=== PATIENT | female | born 1930 | race Caucasian/White ===

== ENCOUNTER 2017-09-21 17:12 | Emergency (ER) | payer OTHER ==
[~2017-09-21] VITALS: Ht 167.6 cm; Wt 77.1 kg
[2017-09-21] MEDS ORDERED: NITROGLYCERIN 0.4 MG SL TAB SL ONE (18:00)
[2017-09-21] MEDS ORDERED: ASPirin 81 mg TAB PO ONE (18:00)
[2017-09-21 18:16] LABS: Basophils # (auto) 0 uL; Basophils % (auto) 0.3 % (0.0-2.0); Eosinophils # (auto) 0.1 uL; Eosinophils % (auto) 1.8 % (0.0-7.0); Hematocrit 43.3 % (36.0-46.0); Hemoglobin 14.1 g/dL (12.2-16.2); Lymphocytes # (auto) 1.3 uL; Lymphocytes % (auto) 16.6 % (10.0-50.0); Mean Corpuscular Hemoglobin 29.5 pg (28.0-32.0); Mean Corpuscular Hgb Conc. 32.7 g/dL (32.0-36.0); Mean Corpuscular Volume 90.4 fL (80.0-100.0); Monocytes # (auto) 0.6 uL; Monocytes % (auto) 7.3 % (0.0-12.0); Nucleated Red Blood Cells % 0.1 %; Platelet Count (auto) 261 10^3/uL (140-450); Red Blood Cells 4.79 10^6/uL (4.0-5.20); Red Cell Distribution Width 15.1 % (11.8-14.3); White Blood Cell 8.1 10^3/uL (4.4-10.8)
[2017-09-21 18:30] LABS: Alanine Aminotransferase 13 U/L (13-56); Albumin 3.7 g/dL (3.4-5.0); Alkaline Phosphatase 106 U/L (45-117); Anion Gap 4 (5-15); Aspartate Aminotransferase 16 U/L (15-37); BUN/Creatinine Ratio 11.7; Bilirubin, Total 0.5 mg/dL (0.2-1.0); Blood Urea Nitrogen 12 mg/dL (7-18); Calcium 8.2 mg/dL (8.5-10.1); Carbon Dioxide 28 mmol/L (21-32); Chloride 105 mmol/L (98-107); GFR African American 65 mL/min; GFR Non-African American 54 mL/min; Glucose 158 mg/dL (74-106); Potassium 3.6 mmol/L (3.5-5.1); Sodium 137 mmol/L (136-145); Total Protein 7.7 g/dL (6.4-8.2)
[2017-09-21 22:10] VITALS: BP 99/33
== END 2017-09-21 22:41 | disposition short-term general hospital (02) ==
LOC: ER 17:12
DX: I48.91 Unspecified atrial fibrillation (principal); I24.9 Acute ischemic heart disease, unspecified; I11.0 Hypertensive heart disease with heart failure; I50.9 Heart failure, unspecified; Z90.49 Acquired absence of other specified parts of digestive tract; Z90.710 Acquired absence of both cervix and uterus
CPT/HCPCS: 36415; 71045; 80053; 84484; 85025; 93005; 99291

== ENCOUNTER 2020-01-16 14:07 | Inpatient (IN) | payer OTHER ==
[~2020-01-16] VITALS: Ht 170.2 cm; Wt 83.6 kg
[2020-01-16] MEDS ORDERED: ZINC SULFATE 220mg CAP or TAB PO ONE (15:00)
[2020-01-16] MEDS ORDERED: ASCORBIC ACID 500 MG TAB PO ONE (15:00)
[2020-01-16 15:33] LABS: Basophils # (auto) 0 10 ^3/uL (0-0.2); Eosinophils # (auto) 0.1 10 ^3/uL (0-0.8); Hemoglobin 7.2 g/dL (12.2-16.2); Mean Corpuscular Hemoglobin 21.7 pg (28.0-32.0); Mean Corpuscular Hgb Conc. 29.9 g/dL (32.0-36.0); Mean Corpuscular Volume 72.5 fL (80.0-100.0); Monocytes # (auto) 0.9 10 ^3/uL (0-1.3); Nucleated Red Blood Cells % 0.1 %; Platelet Count (auto) 416 10^3/uL (140-450); White Blood Cell 7.8 10^3/uL (4.4-10.8)
[2020-01-16 15:35] LABS: Basophils % (auto) 0.4 % (0.0-2.0); Hematocrit 24.2 % (36.0-46.0); Lymphocytes # (auto) 1.2 10 ^3/uL (0.4-5.4); Lymphocytes % (auto) 15.2 % (10.0-50.0); Monocytes % (auto) 11.5 % (0.0-12.0); Neutrophils # (auto) 5.6 10 ^3/uL (1.6-8.6); Neutrophils % (auto) 71.9 % (37.0-80.0); Red Blood Cells 3.34 10^6/uL (4.0-5.20); Red Cell Distribution Width 16.2 % (11.8-14.3)
[2020-01-16 15:51] LABS: Chloride 105 mmol/L (98-107); Potassium 3.9 mmol/L (3.5-5.1); Sodium 134 mmol/L (136-145)
[2020-01-16 15:54] LABS: Alanine Aminotransferase 12 U/L (13-56); Albumin 2.9 g/dL (3.4-5.0); Anion Gap 8 (5-15); Aspartate Aminotransferase 16 U/L (15-37); Blood Urea Nitrogen 16 mg/dL (7-18); CRP High Sensitivity 0.41 mg/dL (< 0.3); Calcium 8.4 mg/dL (8.5-10.1); Carbon Dioxide 21 mmol/L (21-32); GFR African American 87 mL/min; GFR Non-African American 72 mL/min; Glucose 111 mg/dL (74-106)
[2020-01-16 15:56] LABS: Alkaline Phosphatase 106 U/L (45-117); Bilirubin, Total 0.2 mg/dL (0.2-1.0); Lactate Dehydrogenase 255 U/L (84-246); Lactic Acid w/Reflex 2.3 mmol/L (0.4-2.0); Total Protein 7.2 g/dL (6.4-8.2)
[2020-01-16] MEDS ORDERED: MORPHINE SULF INJ 2 MG/ML SYRINGE 1ML IV PRN ×3 (16:45→21:30)
[2020-01-16] MEDS ORDERED: NITROGLYCERIN 0.4 MG SL TAB SL PRN ×3 (16:45→21:30)
[2020-01-16] MEDS ORDERED: FURO1TAB33 PO (19:24)
[2020-01-16] MEDS ORDERED: MET25T PO (19:24)
[2020-01-16] MEDS ORDERED: DIGO0.12 PO (19:24)
[2020-01-16] MEDS ORDERED: POTA10TA75 PO (19:25)
[2020-01-16] MEDS ORDERED: SOD CHL 0.9%/ KCL 20MEQ 1,000 ML IV SCH (21:15)
[2020-01-16] MEDS ORDERED: SODIUM FERR GLUC 62.5MG/5ML 125 MG in SODIUM CHL 0.9% 100 ML IV ONE (21:15)
[2020-01-16] MEDS ORDERED: ALUM & MAG HYDROX-SIMETH LIQ(MAALOX) 30 ML PO PRN (21:30)
[2020-01-16] MEDS ORDERED: LORazepam 0.5 MG TAB PO PRN (21:30)
[2020-01-16] MEDS ORDERED: HYDROcodone-ACET 5/325MG TAB PO PRN (21:30)
[2020-01-16] MEDS ORDERED: FAMOTIDINE (10MG/ML) 2ML VL IV ONE (21:30)
[2020-01-16] MEDS ORDERED: DOCUSATE SOD 100 MG CAP PO PRN (21:30)
[2020-01-16] MEDS ORDERED: ACETAMINOPHEN 500 MG TAB PO PRN (21:30)
[2020-01-16] MEDS ORDERED: ONDANSETRON HCL 4 MG/2 ML VIAL IV PRN (21:30)
[2020-01-16] MEDS ORDERED: ACETAMINOPHEN 325 MG TAB PO PRN (21:30)
[2020-01-16] MEDS ORDERED: ALBUTEROL SULF HFA 90MCG INH 200DOSE IN SCH (22:00)
[2020-01-16] MEDS ORDERED: BUDESONIDE (INHALATION) 180 MCG IH IN SCH (22:00)
[2020-01-16] MEDS ORDERED: DIGOXIN 0.125 MG TAB PO SCH (22:00)
[2020-01-16] MEDS: METOPROLOL TARTRATE 25 MG TAB PO SCH (22:00)
[2020-01-16 22:30] VITALS: BP 123/55
[2020-01-17] MEDS: DOXYCYCLINE 100MG/250ML 250 ML IV SCH ×2 (00:07→10:03)
[2020-01-17] MEDS: ATORVASTATIN 20 MG TAB PO SCH ×2 (00:09→22:11)
[2020-01-17 02:47] VITALS: BP 112/52
[2020-01-17 04:53] VITALS: BP 112/63
[2020-01-17] MEDS: FUROSEMIDE 20 MG/2 ML VIAL IV SCH ×2 (06:00→15:58)
[2020-01-17 07:59] LABS: Basophils # (auto) 0 10 ^3/uL (0-0.2); Basophils % (auto) 0.2 % (0.0-2.0); Eosinophils # (auto) 0.1 10 ^3/uL (0-0.8); Eosinophils % (auto) 1.8 % (0.0-7.0); Hematocrit 23.2 % (36.0-46.0); Lymphocytes # (auto) 1.3 10 ^3/uL (0.4-5.4); Lymphocytes % (auto) 19.6 % (10.0-50.0); Mean Corpuscular Hgb Conc. 29.8 g/dL (32.0-36.0); Mean Corpuscular Volume 73.9 fL (80.0-100.0); Monocytes # (auto) 0.7 10 ^3/uL (0-1.3); Monocytes % (auto) 9.7 % (0.0-12.0); Neutrophils # (auto) 4.6 10 ^3/uL (1.6-8.6); Neutrophils % (auto) 68.7 % (37.0-80.0); Nucleated Red Blood Cells % 0.1 %; Platelet Count (auto) 371 10^3/uL (140-450); Red Blood Cells 3.14 10^6/uL (4.0-5.20); Red Cell Distribution Width 16.6 % (11.8-14.3); White Blood Cell 6.7 10^3/uL (4.4-10.8)
[2020-01-17 08:02] LABS: Hemoglobin 6.9 g/dL (12.2-16.2)
[2020-01-17 08:16] LABS: Calcium 8.1 mg/dL (8.5-10.1); Magnesium 2.1 mg/dL (1.6-2.6); Potassium 3.4 mmol/L (3.5-5.1)
[2020-01-17 08:18] LABS: BUN/Creatinine Ratio 20.8
[2020-01-17 08:21] LABS: Bilirubin, Total 0.5 mg/dL (0.2-1.0); CRP High Sensitivity 0.52 mg/dL (< 0.3); Total Protein 6.2 g/dL (6.4-8.2)
[2020-01-17 09:00] VITALS: BP 135/56
[2020-01-17] MEDS ORDERED: ZINC SULFATE 220mg CAP or TAB PO SCH (10:00)
[2020-01-17] MEDS ORDERED: ASCORBIC ACID 1,000 MG TAB PO SCH (10:00)
[2020-01-17] MEDS ORDERED: CHOLECALCIFEROL (VITD3) 2,000 UNIT CAP PO SCH (10:00)
[2020-01-17] MEDS ORDERED: LISINOPRIL 5 MG TAB PO SCH (10:00)
[2020-01-17] MEDS: FAMOTIDINE (10MG/ML) 2ML VL IV SCH ×2 (10:03→22:10)
[2020-01-17] MEDS: METOPROLOL TARTRATE 25 MG TAB PO SCH ×2 (10:03→22:11)
[2020-01-17 13:00] VITALS: BP 138/59
[2020-01-17] MEDS ORDERED: DABI150C5 PO (13:44)
[2020-01-17] MEDS: SODIUM FERR GLUC 62.5MG/5ML 125 MG in SODIUM CHL 0.9% 100 ML IV SCH (13:50)
[2020-01-17] MEDS ORDERED: POTASSIUM CHL 20 Meq TABLET PO ONE (14:15)
[2020-01-17 17:00] VITALS: BP 99/64
[2020-01-17 17:50] LABS: Hematocrit 23.6 % (36.0-46.0); Hemoglobin 7.1 g/dL (12.2-16.2)
[2020-01-17 17:56] LABS: INR 1.06 (0.9-1.15)
[2020-01-17 17:58] LABS: % Iron Saturation 34.6 % (15-50)
[2020-01-17] MEDS ORDERED: ARTIFICIAL TEARS 15ml LEFTEYE PRN (20:00)
[2020-01-17 22:00] VITALS: BP 106/51
[2020-01-17] MEDS: POTASSIUM CHL 10 Meq TABLET PO SCH (22:11)
[2020-01-17] MEDS: DABIGATRAN 75 MG CAP PO SCH (22:11)
[2020-01-18 05:11] VITALS: BP 106/49
[2020-01-18] MEDS: FUROSEMIDE 20 MG/2 ML VIAL IV SCH ×2 (06:27→17:45)
[2020-01-18 08:26] VITALS: BP 117/58
[2020-01-18] MEDS: FAMOTIDINE (10MG/ML) 2ML VL IV SCH ×2 (09:58→21:34)
[2020-01-18] MEDS: DIGOXIN 0.125 MG TAB PO SCH (09:58)
[2020-01-18] MEDS: POTASSIUM CHL 10 Meq TABLET PO SCH ×2 (09:58→21:26)
[2020-01-18] MEDS: DABIGATRAN 75 MG CAP PO SCH ×2 (09:59→21:27)
[2020-01-18] MEDS: METOPROLOL TARTRATE 25 MG TAB PO SCH ×2 (09:59→21:34)
[2020-01-18] MEDS ORDERED: LACTULOSE 20Gm/30ML SOLN PO ONE (11:30)
[2020-01-18 12:30] VITALS: BP 112/60
[2020-01-18 13:06] LABS: Urine Bacteria FEW /hpf (None Seen); Urine Blood Negative /uL (Negative); Urine Specific Gravity 1.005 (1.001-1.035); Urine WBC 1 /hpf (0 - 5)
[2020-01-18 13:08] LABS: Alcohol, Urine < 3.0 mg/dL (0-10); Amphetamine Screen, Urine NEGATIVE (NEGATIVE); Barbiturate Scree,Urine NEGATIVE (NEGATIVE); Benzodiazephine Screen, Urine NEGATIVE (NEGATIVE); Cannabinoid Screen, Urine NEGATIVE (NEGATIVE); Cocaine Screen, Urine NEGATIVE (NEGATIVE); Opiate Scree,Urine NEGATIVE (NEGATIVE); Phencyclidine Screen, Urine NEGATIVE (NEGATIVE)
[2020-01-18] MEDS: SODIUM FERR GLUC 62.5MG/5ML 125 MG in SODIUM CHL 0.9% 100 ML IV SCH (13:43)
[2020-01-18] MEDS ORDERED: LACTULOSE 20Gm/30ML SOLN PO PRN (15:30)
[2020-01-18 17:08] VITALS: BP 116/70
[2020-01-18] MEDS: ATORVASTATIN 20 MG TAB PO SCH (21:26)
[2020-01-18] MEDS: DOCUSATE SOD 100 MG CAP PO SCH (21:27)
[2020-01-18 22:00] VITALS: BP 102/54
[2020-01-19] VITALS (8 sets, daily range): BP systolic 106–140; BP diastolic 42–71
[2020-01-19] MEDS: FUROSEMIDE 20 MG/2 ML VIAL IV SCH (05:56)
[2020-01-19 07:19] LABS: Basophils # (auto) 0 10 ^3/uL (0-0.2); Basophils % (auto) 0.4 % (0.0-2.0); Eosinophils # (auto) 0.2 10 ^3/uL (0-0.8); Lymphocytes # (auto) 1.4 10 ^3/uL (0.4-5.4); Neutrophils # (auto) 4.8 10 ^3/uL (1.6-8.6); Nucleated Red Blood Cells % 0.1 %
[2020-01-19 07:22] LABS: Eosinophils % (auto) 3.3 % (0.0-7.0); Hematocrit 21.4 % (36.0-46.0); Lymphocytes % (auto) 19.3 % (10.0-50.0); Mean Corpuscular Hemoglobin 21.9 pg (28.0-32.0); Mean Corpuscular Hgb Conc. 30.6 g/dL (32.0-36.0); Mean Corpuscular Volume 71.6 fL (80.0-100.0); Monocytes # (auto) 0.8 10 ^3/uL (0-1.3); Monocytes % (auto) 11.2 % (0.0-12.0); Neutrophils % (auto) 65.8 % (37.0-80.0); Platelet Count (auto) 370 10^3/uL (140-450); Red Blood Cells 2.99 10^6/uL (4.0-5.20); Red Cell Distribution Width 16.2 % (11.8-14.3); White Blood Cell 7.2 10^3/uL (4.4-10.8)
[2020-01-19 07:32] LABS: Potassium 3.6 mmol/L (3.5-5.1)
[2020-01-19 07:39] LABS: Hemoglobin 6.6 g/dL (12.2-16.2)
[2020-01-19 07:42] LABS: BUN/Creatinine Ratio 17.1; Calcium 8.3 mg/dL (8.5-10.1); Magnesium 2.4 mg/dL (1.6-2.6)
[2020-01-19] MEDS ORDERED: SODIUM CHLORIDE 0.9% 1,000 ML IV ONE (10:00)
[2020-01-19] MEDS ORDERED: diphenhdrAMINE HCL 25 MG CAP PO PRN (10:00)
[2020-01-19] MEDS: METOPROLOL TARTRATE 25 MG TAB PO SCH ×2 (10:00→22:43)
[2020-01-19] MEDS ORDERED: ACETAMINOPHEN 500 MG TAB PO ONE (10:00)
[2020-01-19] MEDS: DOCUSATE SOD 100 MG CAP PO SCH ×2 (10:06→22:00)
[2020-01-19] MEDS: POTASSIUM CHL 10 Meq TABLET PO SCH (10:06)
[2020-01-19] MEDS: FAMOTIDINE (10MG/ML) 2ML VL IV SCH ×2 (10:06→22:42)
[2020-01-19] MEDS: DIGOXIN 0.125 MG TAB PO SCH (10:07)
[2020-01-19] MEDS: SODIUM FERR GLUC 62.5MG/5ML 125 MG in SODIUM CHL 0.9% 100 ML IV SCH (12:00)
[2020-01-19] MEDS: ATORVASTATIN 20 MG TAB PO SCH (22:43)
[2020-01-20 05:00] VITALS: BP 119/76
[2020-01-20] MEDS ORDERED: IOHEXOL 300 MG/ML 100ML BOTTLE IJ ONE (07:37)
[2020-01-20 09:00] VITALS: BP 113/63
[2020-01-20] MEDS ORDERED: PANTOPRAZOLE 40 MG/10 ML VIAL INJ IV ONE (09:45)
[2020-01-20] MEDS ORDERED: SODIUM CHLORIDE LOCK 10 ML ONE (11:39)
[2020-01-20] MEDS ORDERED: diphenhdrAMINE HCL 50 MG/1 ML VL ONE (11:40)
[2020-01-20] MEDS ORDERED: LIDOCAINE VISCOUS 2% 15ML UD ONE (11:40)
[2020-01-20] MEDS: fentaNYL CITRATE 100 MCG/2 ML VL ONE ×2 (11:54→11:56)
[2020-01-20] MEDS: MIDAZOLAM HCL 5 MG/ML-1ML VIAL ONE ×4 (11:54→11:59)
[2020-01-20 13:00] VITALS: BP 116/55
[2020-01-20 13:00] LABS: Basophils # (auto) 0 10 ^3/uL (0-0.2); Eosinophils # (auto) 0.2 10 ^3/uL (0-0.8); Lymphocytes # (auto) 1.1 10 ^3/uL (0.4-5.4); Lymphocytes % (auto) 15.9 % (10.0-50.0); Mean Corpuscular Hemoglobin 23.2 pg (28.0-32.0); Monocytes # (auto) 0.8 10 ^3/uL (0-1.3); Neutrophils # (auto) 4.9 10 ^3/uL (1.6-8.6); Neutrophils % (auto) 69.3 % (37.0-80.0); Nucleated Red Blood Cells % 0.2 %; Platelet Count (auto) 341 10^3/uL (140-450)
[2020-01-20 13:02] LABS: Basophils % (auto) 0.5 % (0.0-2.0); Eosinophils % (auto) 2.4 % (0.0-7.0); Hematocrit 24.6 % (36.0-46.0); Hemoglobin 7.6 g/dL (12.2-16.2); Mean Corpuscular Hgb Conc. 30.8 g/dL (32.0-36.0); Mean Corpuscular Volume 75.2 fL (80.0-100.0); Monocytes % (auto) 11.9 % (0.0-12.0); Red Blood Cells 3.27 10^6/uL (4.0-5.20); Red Cell Distribution Width 17.9 % (11.8-14.3)
[2020-01-20 13:19] LABS: Albumin 2.9 g/dL (3.4-5.0); Calcium 8.1 mg/dL (8.5-10.1); Potassium 3.8 mmol/L (3.5-5.1)
[2020-01-20 13:23] LABS: BUN/Creatinine Ratio 15.2; Bilirubin, Total 0.6 mg/dL (0.2-1.0); Total Protein 5.8 g/dL (6.4-8.2)
[2020-01-20] MEDS: DIGOXIN 0.125 MG TAB PO SCH (13:58)
[2020-01-20] MEDS: DOCUSATE SOD 100 MG CAP PO SCH ×2 (13:58→21:50)
[2020-01-20] MEDS: SODIUM FERR GLUC 62.5MG/5ML 125 MG in SODIUM CHL 0.9% 100 ML IV SCH (13:59)
[2020-01-20] MEDS: METOPROLOL TARTRATE 25 MG TAB PO SCH ×3 (13:59→21:50)
[2020-01-20 17:00] VITALS: BP 90/60
[2020-01-20] MEDS: SUCRALFATE 1 GM/10 ML ORAL SUSP PO SCH ×2 (18:14→21:38)
[2020-01-20] MEDS: PANTOPRAZOLE 40 MG/10 ML VIAL INJ IV SCH (21:37)
[2020-01-20 22:00] VITALS: BP 130/56
[2020-01-21 05:00] VITALS: BP 129/62
[2020-01-21] MEDS: SUCRALFATE 1 GM/10 ML ORAL SUSP PO SCH ×4 (06:29→22:32)
[2020-01-21 07:45] LABS: Hemoglobin 7.6 g/dL (12.2-16.2)
[2020-01-21 07:50] LABS: Hematocrit 24.6 % (36.0-46.0)
[2020-01-21 09:00] VITALS: BP 114/59
[2020-01-21] MEDS ORDERED: PANT40TA2 PO (09:35)
[2020-01-21] MEDS ORDERED: FER325T PO (09:35)
[2020-01-21] MEDS: METOPROLOL TARTRATE 25 MG TAB PO SCH ×2 (10:00→22:00)
[2020-01-21] MEDS: DOCUSATE SOD 100 MG CAP PO SCH ×2 (10:00→22:32)
[2020-01-21] MEDS: PANTOPRAZOLE 40 MG/10 ML VIAL INJ IV SCH ×2 (10:45→22:32)
[2020-01-21] MEDS: DIGOXIN 0.125 MG TAB PO SCH (10:47)
[2020-01-21 13:00] VITALS: BP 115/56
[2020-01-21] MEDS: SODIUM FERR GLUC 62.5MG/5ML 125 MG in SODIUM CHL 0.9% 100 ML IV SCH (13:59)
[2020-01-21 16:58] VITALS: BP 106/55
[2020-01-21 22:00] VITALS: BP 106/59
[2020-01-22 05:00] VITALS: BP 123/52
[2020-01-22] MEDS: SUCRALFATE 1 GM/10 ML ORAL SUSP PO SCH ×4 (06:00→21:49)
[2020-01-22 09:00] VITALS: BP 126/52
[2020-01-22] MEDS: DOCUSATE SOD 100 MG CAP PO SCH ×2 (10:00→21:49)
[2020-01-22] MEDS: DIGOXIN 0.125 MG TAB PO SCH (10:00)
[2020-01-22] MEDS: PANTOPRAZOLE 40 MG/10 ML VIAL INJ IV SCH ×2 (10:14→21:49)
[2020-01-22] MEDS: METOPROLOL TARTRATE 25 MG TAB PO SCH ×2 (10:20→21:51)
[2020-01-22 13:00] VITALS: BP 113/53
[2020-01-22 17:00] VITALS: BP 124/58
[2020-01-22 20:00] VITALS: BP 110/53
[2020-01-22 22:00] VITALS: BP 110/53
[2020-01-23] MEDS: SUCRALFATE 1 GM/10 ML ORAL SUSP PO SCH ×2 (06:01→12:37)
[2020-01-23 06:21] VITALS: BP 127/57
[2020-01-23 06:36] LABS: Hematocrit 25.8 % (36.0-46.0); Hemoglobin 7.9 g/dL (12.2-16.2)
[2020-01-23] MEDS: PANTOPRAZOLE 40 MG/10 ML VIAL INJ IV SCH (09:42)
[2020-01-23] MEDS: METOPROLOL TARTRATE 25 MG TAB PO SCH (09:42)
[2020-01-23] MEDS: DOCUSATE SOD 100 MG CAP PO SCH (09:42)
[2020-01-23] MEDS: DIGOXIN 0.125 MG TAB PO SCH (09:43)
[2020-01-23 13:00] VITALS: BP 112/55
[2020-01-23 15:48] VITALS: BP 112/55
[2020-01-23 16:57] VITALS: BP 114/56
== END 2020-01-23 19:35 | disposition home health service (06) | DRG 377 ==
LOC: ER 14:07 → EDBD 14:07 → TELE 14:08 → TELE-EAST 22:19 → TELE-CENTR 01-17 19:43
PROVIDERS: ADMIT Hospitalist; ATTEND Internal Medicine
PROC: 30233N1 Transfusion of Nonautologous Red Blood Cells into Peripheral Vein, Percutaneous Approach (ICD-10-PCS; 2020-01-19)
PROC: 0DB88ZX Excision of Small Intestine, Via Natural or Artificial Opening Endoscopic, Diagnostic (ICD-10-PCS; 2020-01-20)
PROC: 0DB68ZX Excision of Stomach, Via Natural or Artificial Opening Endoscopic, Diagnostic (ICD-10-PCS; principal; 2020-01-20 11:45)
DX: K29.01 Acute gastritis with bleeding (principal); I50.43 Acute on chronic combined systolic (congestive) and diastolic (congestive) heart failure; E87.2 Acidosis; I48.20 Chronic atrial fibrillation, unspecified; E44.0 Moderate protein-calorie malnutrition; D50.9 Iron deficiency anemia, unspecified; I11.0 Hypertensive heart disease with heart failure; K43.9 Ventral hernia without obstruction or gangrene; D53.9 Nutritional anemia, unspecified; R73.9 Hyperglycemia, unspecified; E78.5 Hyperlipidemia, unspecified; E87.6 Hypokalemia; F17.200 Nicotine dependence, unspecified, uncomplicated; G25.0 Essential tremor; I25.9 Chronic ischemic heart disease, unspecified; I67.2 Cerebral atherosclerosis; I70.0 Atherosclerosis of aorta; K57.30 Diverticulosis of large intestine without perforation or abscess without bleeding; K59.00 Constipation, unspecified; R73.03 Prediabetes; Z79.899 Other long term (current) drug therapy; Z90.49 Acquired absence of other specified parts of digestive tract; Z90.710 Acquired absence of both cervix and uterus; K42.9 Umbilical hernia without obstruction or gangrene; Z20.828 Contact with and (suspected) exposure to other viral communicable diseases
CPT/HCPCS: 36415; 70450; 70551; 71045; 74177; 80048; 80053; 80061; 80162; 80307; 81001; 82270; 82607; 82728; 83036; 83540; 83550; 83605; 83615; 83735; 83880; 84100; 84132; 84443; 84484; 85014; 85018; 85025; 85379; 85610; 85652; 86141; 86850; 86900; 86901; 86920; 87040; 87086; 93005; 93306; 97116; 97163; 97530; 99291; C9113; G0378; J2250; J3490

== ENCOUNTER 2020-07-28 21:07 | Emergency (ER) | payer OTHER ==
[~2020-07-28] VITALS: Ht 170.2 cm; Wt 77.1 kg
[~2020-07-28 21:07] MED LIST: DABI150C5 PO; DIGO0.12 PO; FER325T PO; FURO1TAB33 PO; MET25T PO; PANT40TA2 PO; POTA-264 PO
[2020-07-28 21:17] VITALS: BP 121/82
[2020-07-28 21:57] LABS: Basophils # (auto) 0 10 ^3/uL (0-0.2); Basophils % (auto) 0.2 % (0.0-2.0); Eosinophils # (auto) 0.1 10 ^3/uL (0-0.8); Eosinophils % (auto) 0.7 % (0.0-7.0); Hematocrit 41.6 % (36.0-46.0); Hemoglobin 13.8 g/dL (12.2-16.2); Lymphocytes # (auto) 0.9 10 ^3/uL (0.4-5.4); Lymphocytes % (auto) 6.4 % (10.0-50.0); Mean Corpuscular Hemoglobin 30.2 pg (28.0-32.0); Mean Corpuscular Hgb Conc. 33.2 g/dL (32.0-36.0); Mean Corpuscular Volume 91.1 fL (80.0-100.0); Monocytes # (auto) 0.9 10 ^3/uL (0-1.3); Monocytes % (auto) 6.6 % (0.0-12.0); Neutrophils # (auto) 11.4 10 ^3/uL (1.6-8.6); Neutrophils % (auto) 86.1 % (37.0-80.0); Nucleated Red Blood Cells % 0.1 %; Platelet Count (auto) 229 10^3/uL (140-450); Red Blood Cells 4.57 10^6/uL (4.0-5.20); Red Cell Distribution Width 15.3 % (11.8-14.3); White Blood Cell 13.3 10^3/uL (4.4-10.8)
[2020-07-28 22:11] LABS: Albumin 3.3 g/dL (3.4-5.0); Anion Gap 9 (5-15); Blood Urea Nitrogen 16 mg/dL (7-18); Calcium 8.4 mg/dL (8.5-10.1); Carbon Dioxide 24 mmol/L (21-32); Chloride 103 mmol/L (98-107); Glucose 165 mg/dL (74-106); Magnesium 1.8 mg/dL (1.6-2.6); Potassium 3.7 mmol/L (3.5-5.1); Sodium 136 mmol/L (136-145)
[2020-07-28 22:13] LABS: Alanine Aminotransferase 14 U/L (13-56); Aspartate Aminotransferase 19 U/L (15-37); BUN/Creatinine Ratio 16.7; GFR African American 71 mL/min; GFR Non-African American 58 mL/min; INR 1.01 (0.9-1.15); Partial Thromboplastin Time 33.6 sec (23.0-31.2)
[2020-07-28 22:27] LABS: Alkaline Phosphatase 102 U/L (45-117); Bilirubin, Total 0.2 mg/dL (0.2-1.0); Total Protein 6.6 g/dL (6.4-8.2)
[2020-07-29] MEDS ORDERED: FUROSEMIDE 20 MG/2 ML VIAL IV ONE (00:30)
== END 2020-07-29 01:27 | disposition home or self-care (01) ==
LOC: EDBD 21:07 → ER 21:10
DX: R07.89 Other chest pain (principal); I11.0 Hypertensive heart disease with heart failure; I50.23 Acute on chronic systolic (congestive) heart failure; E78.5 Hyperlipidemia, unspecified; Z79.899 Other long term (current) drug therapy; Z90.49 Acquired absence of other specified parts of digestive tract; Z90.710 Acquired absence of both cervix and uterus
CPT/HCPCS: 36415; 71045; 80053; 83735; 83880; 84484; 85025; 85379; 85610; 85730; 93005; 93971

== ENCOUNTER 2021-04-22 10:20 | Inpatient (IN) | payer OTHER ==
[~2021-04-22] VITALS: Ht 170.2 cm; Wt 80.1 kg
[2021-04-22 12:40] LABS: Basophils # (auto) 0 10 ^3/uL (0-0.2); Basophils % (auto) 0.1 % (0.0-2.0); Eosinophils # (auto) 0 10 ^3/uL (0-0.8); Hematocrit 34.5 % (36.0-46.0); Hemoglobin 11.4 g/dL (12.2-16.2); Lymphocytes # (auto) 0.3 10 ^3/uL (0.4-5.4); Lymphocytes % (auto) 7.1 % (10.0-50.0); Mean Corpuscular Hemoglobin 29.9 pg (28.0-32.0); Mean Corpuscular Hgb Conc. 32.9 g/dL (32.0-36.0); Mean Corpuscular Volume 90.7 fL (80.0-100.0); Monocytes # (auto) 0.8 10 ^3/uL (0-1.3); Monocytes % (auto) 17.5 % (0.0-12.0); Neutrophils # (auto) 3.6 10 ^3/uL (1.6-8.6); Neutrophils % (auto) 75.3 % (37.0-80.0); Nucleated Red Blood Cells % 0.1 %; Red Blood Cells 3.81 10^6/uL (4.0-5.20); Red Cell Distribution Width 14.6 % (11.8-14.3); White Blood Cell 4.8 10^3/uL (4.4-10.8)
[2021-04-22] MEDS ORDERED: ONDANSETRON HCL 4 MG/2 ML VIAL IV ONE (12:45)
[2021-04-22] MEDS ORDERED: ONDANSETRON HCL 4 MG/2 ML VIAL ONE (12:45)
[2021-04-22 13:06] LABS: Calcium 8.3 mg/dL (8.5-10.1); Potassium 3.7 mmol/L (3.5-5.1)
[2021-04-22 13:14] LABS: BUN/Creatinine Ratio 20.6; Bilirubin, Total 0.3 mg/dL (0.2-1.0); Total Protein 6.6 g/dL (6.4-8.2)
[2021-04-22] MEDS ORDERED: dilTIAZem 25 MG/5 ML VIAL IV ONE ×2 (15:45→16:30)
[2021-04-22] MEDS ORDERED: MORPHINE SULFATE INJECTION 2 MG/ML SYRG IV PRN ×3 (17:30→19:30)
[2021-04-22] MEDS ORDERED: DABI1CAP PO (18:43)
[2021-04-22] MEDS ORDERED: hydrALAZINE HCL 20 MG/ML VL IV PRN (19:30)
[2021-04-22] MEDS ORDERED: FAMOTIDINE (10MG/ML) 2ML VL IV ONE (19:30)
[2021-04-22] MEDS ORDERED: METOPROLOL TARTRATE 1MG/1ML-5ML VIAL IV PRN (19:30)
[2021-04-22] MEDS ORDERED: ALUM & MAG HYDROX-SIMETH LIQ(MAALOX) 30 ML PO PRN (19:30)
[2021-04-22] MEDS ORDERED: HYDROcodone-ACET 5/325MG TAB PO PRN (19:30)
[2021-04-22] MEDS ORDERED: LORazepam 0.5 MG TAB PO PRN (19:30)
[2021-04-22] MEDS ORDERED: DOCUSATE SOD 100 MG CAP PO PRN (19:30)
[2021-04-22] MEDS ORDERED: NITROGLYCERIN 0.4 MG SL TAB SL PRN (19:30)
[2021-04-22] MEDS ORDERED: NIFEdipine ER 30 MG TAB PO ONE (19:30)
[2021-04-22] MEDS ORDERED: METOPROLOL SUCCINATE XL 50 MG TAB PO ONE (19:30)
[2021-04-22] MEDS ORDERED: SODIUM CHLORIDE 0.9% 1,000 ML IV SCH (19:30)
[2021-04-22] MEDS ORDERED: cefTRIAXone 1GM/50ML D5W 50 ML IV ONE (19:30)
[2021-04-22] MEDS ORDERED: AZITHROMYCIN 500MG/ 250ML 250 ML IV ONE (21:00)
[2021-04-22] MEDS: FAMOTIDINE (10MG/ML) 2ML VL IV SCH (22:00)
[2021-04-22] MEDS: ATORVASTATIN 20 MG TAB PO SCH (22:00)
[2021-04-22] MEDS: APIXABAN 5 MG TAB PO SCH (22:00)
[2021-04-22] MEDS: ONDANSETRON HCL 4 MG/2 ML VIAL IV PRN (23:54)
[2021-04-23] VITALS (7 sets, daily range): BP systolic 104–145; BP diastolic 59–81
[2021-04-23] MEDS ORDERED: FUROSEMIDE 20 MG/2 ML VIAL IV SCH (06:00)
[2021-04-23 07:58] LABS: Basophils # (auto) 0 10 ^3/uL (0-0.2); Basophils % (auto) 0.3 % (0.0-2.0); Eosinophils # (auto) 0 10 ^3/uL (0-0.8); Hematocrit 37.6 % (36.0-46.0); Lymphocytes # (auto) 0.6 10 ^3/uL (0.4-5.4); Mean Corpuscular Hemoglobin 29.1 pg (28.0-32.0); Mean Corpuscular Volume 90.8 fL (80.0-100.0); Monocytes # (auto) 0.7 10 ^3/uL (0-1.3); Monocytes % (auto) 14.1 % (0.0-12.0); Neutrophils # (auto) 3.8 10 ^3/uL (1.6-8.6); Neutrophils % (auto) 73.6 % (37.0-80.0); Nucleated Red Blood Cells % 0.1 %; Red Blood Cells 4.15 10^6/uL (4.0-5.20); Red Cell Distribution Width 14.6 % (11.8-14.3); White Blood Cell 5.2 10^3/uL (4.4-10.8)
[2021-04-23 08:12] LABS: BUN/Creatinine Ratio 16.7; Calcium 8.2 mg/dL (8.5-10.1); Magnesium 2.3 mg/dL (1.6-2.6); Potassium 3.5 mmol/L (3.5-5.1)
[2021-04-23 08:35] LABS: INR 1.03 (0.9-1.15); Partial Thromboplastin Time 38.9 sec (23.6-33.0)
[2021-04-23 08:38] LABS: Bilirubin, Total 0.3 mg/dL (0.2-1.0); Total Protein 6.6 g/dL (6.4-8.2)
[2021-04-23 09:45] LABS: Phosphorus 3.3 mg/dL (2.5-4.90)
[2021-04-23] MEDS: FAMOTIDINE (10MG/ML) 2ML VL IV SCH (10:00)
[2021-04-23] MEDS ORDERED: NIFEdipine ER 30 MG TAB PO SCH (10:00)
[2021-04-23] MEDS ORDERED: METOPROLOL SUCCINATE XL 50 MG TAB PO SCH (10:00)
[2021-04-23] MEDS ORDERED: POTASSIUM CHL 20 Meq TABLET PO ONE (10:45)
[2021-04-23] MEDS: cefTRIAXone 1GM/50ML D5W 50 ML IV SCH (10:56)
[2021-04-23] MEDS: APIXABAN 5 MG TAB PO SCH ×2 (10:56→21:32)
[2021-04-23] MEDS: AZITHROMYCIN 500MG/ 250ML 250 ML IV SCH (10:57)
[2021-04-23] MEDS ORDERED: ZINC SULFATE 220mg CAP or TAB PO ONE (12:00)
[2021-04-23] MEDS ORDERED: REMDESIVIR PER PHARMACY 0 ML IV SCH (12:00)
[2021-04-23] MEDS ORDERED: DexAMETHasone SOD PHOS 4 MG/1ML SDV INJ IV ONE (12:00)
[2021-04-23] MEDS ORDERED: ASCORBIC ACID 500 MG TAB PO ONE (12:00)
[2021-04-23] MEDS ORDERED: REMDESIVIR 200 MG in NS 210ml LOADING DOSE ADULT IV ONE (15:00)
[2021-04-23] MEDS: ONDANSETRON HCL 4 MG/2 ML VIAL IV PRN ×2 (16:27→21:46)
[2021-04-23] MEDS: MORPHINE SULFATE INJECTION 2 MG/ML SYRG IV PRN (16:32)
[2021-04-23] MEDS: ERGOCALCIFEROL 50,000 UNIT(1.25MG) CAP PO SCH (17:15)
[2021-04-23] MEDS: METOPROLOL TARTRATE 25 MG TAB PO SCH (21:32)
[2021-04-23] MEDS: ATORVASTATIN 20 MG TAB PO SCH (21:32)
[2021-04-24 05:30] VITALS: BP 129/67
[2021-04-24 09:00] VITALS: BP 139/75
[2021-04-24] MEDS: cefTRIAXone 1GM/50ML D5W 50 ML IV SCH (10:05)
[2021-04-24] MEDS: FAMOTIDINE (10MG/ML) 2ML VL IV SCH (10:05)
[2021-04-24] MEDS: DexAMETHasone SOD PHOS 4 MG/1ML SDV INJ IV SCH (10:05)
[2021-04-24] MEDS: ZINC SULFATE 220mg CAP or TAB PO SCH (10:06)
[2021-04-24] MEDS: AZITHROMYCIN 500MG/ 250ML 250 ML IV SCH (10:06)
[2021-04-24] MEDS: ASCORBIC ACID 500 MG TAB PO SCH (10:06)
[2021-04-24] MEDS: METOPROLOL TARTRATE 25 MG TAB PO SCH ×2 (10:06→22:33)
[2021-04-24] MEDS: APIXABAN 5 MG TAB PO SCH ×2 (10:06→22:32)
[2021-04-24] MEDS: FUROSEMIDE 20 MG/2 ML VIAL IV SCH (10:07)
[2021-04-24 10:58] LABS: Hematocrit 37.3 % (36.0-46.0); Mean Corpuscular Hemoglobin 29.2 pg (28.0-32.0); Mean Corpuscular Hgb Conc. 32.3 g/dL (32.0-36.0); Mean Corpuscular Volume 90.5 fL (80.0-100.0); Red Blood Cells 4.13 10^6/uL (4.0-5.20); Red Cell Distribution Width 14.3 % (11.8-14.3)
[2021-04-24 11:08] LABS: Basophils % (manual) 0 (0.0-2.0); Blast Cells 0; Eosinophils % (manual) 0 (0-7); Myelocytes % 0; Promyelocytes % 0; Reactive Lymphocytes 0
[2021-04-24] MEDS ORDERED: PANTOPRAZOLE 40 MG/10 ML VIAL INJ IV ONE (11:15)
[2021-04-24] MEDS ORDERED: ALPRAZolam 0.25 MG TAB PO ONE (11:15)
[2021-04-24 11:18] LABS: Albumin 2.9 g/dL (3.4-5.0); Calcium 8.5 mg/dL (8.5-10.1); Potassium 4.2 mmol/L (3.5-5.1)
[2021-04-24 11:22] LABS: BUN/Creatinine Ratio 20.6; Bilirubin, Total 0.4 mg/dL (0.2-1.0); Total Protein 6.2 g/dL (6.4-8.2)
[2021-04-24 11:46] LABS: Alcohol, Urine < 3.0 mg/dL (0-10); Amphetamine Screen, Urine NEGATIVE (NEGATIVE); Barbiturate Scree,Urine NEGATIVE (NEGATIVE); Benzodiazephine Screen, Urine NEGATIVE (NEGATIVE); Cannabinoid Screen, Urine NEGATIVE (NEGATIVE); Cocaine Screen, Urine NEGATIVE (NEGATIVE); Opiate Scree,Urine NEGATIVE (NEGATIVE); Phencyclidine Screen, Urine NEGATIVE (NEGATIVE)
[2021-04-24 12:42] LABS: Urine Bacteria FEW /hpf (None Seen); Urine Blood Negative /uL (Negative); Urine Hyaline Cast MANY /lpf (0 - 2); Urine Specific Gravity 1.008 (1.001-1.035); Urine WBC <1 /hpf (0 - 5)
[2021-04-24 12:56] LABS: Band Neutrophils % (manual) 8; Lymphocytes % (manual) 27 (10.0-50.0); Metamyelocytes % 2; Monocytes % (manual) 19 (0-12)
[2021-04-24 13:00] VITALS: BP 118/61
[2021-04-24] MEDS ORDERED: ARTIFICIAL TEARS 15ml EACHEYE PRN ×3 (13:15→22:00)
[2021-04-24] MEDS: REMDESIVIR 100mg 100 MG in SODIUM CHL 0.9% 230 ML IV SCH (15:24)
[2021-04-24 17:00] VITALS: BP 119/69
[2021-04-24] MEDS: ATORVASTATIN 20 MG TAB PO SCH (22:33)
[2021-04-24] MEDS: ALPRAZolam 0.25 MG TAB PO SCH (22:36)
[2021-04-24] MEDS: MURO EACHEYE SCH (22:36)
[2021-04-24 23:17] VITALS: BP 117/64
[2021-04-25] VITALS (8 sets, daily range): BP systolic 98–123; BP diastolic 55–71
[2021-04-25] MEDS: cefTRIAXone 1GM/50ML D5W 50 ML IV SCH (09:05)
[2021-04-25] MEDS: DexAMETHasone SOD PHOS 4 MG/1ML SDV INJ IV SCH (09:05)
[2021-04-25] MEDS: APIXABAN 5 MG TAB PO SCH ×2 (09:06→22:21)
[2021-04-25] MEDS: ZINC SULFATE 220mg CAP or TAB PO SCH (09:06)
[2021-04-25] MEDS: ALPRAZolam 0.25 MG TAB PO SCH ×2 (09:07→22:21)
[2021-04-25] MEDS: [UNRECOGNIZED DRUG - OTHER] EACHEYE PRN (09:07)
[2021-04-25] MEDS: ASCORBIC ACID 500 MG TAB PO SCH (09:07)
[2021-04-25] MEDS: FUROSEMIDE 20 MG/2 ML VIAL IV SCH (09:21)
[2021-04-25] MEDS: METOPROLOL TARTRATE 25 MG TAB PO SCH ×2 (09:22→22:20)
[2021-04-25] MEDS ORDERED: PANTOPRAZOLE 40 MG/10 ML VIAL INJ IV SCH (10:00)
[2021-04-25] MEDS: AZITHROMYCIN 500MG/ 250ML 250 ML IV SCH (10:16)
[2021-04-25] MEDS: ONDANSETRON HCL 4 MG/2 ML VIAL IV PRN (15:09)
[2021-04-25] MEDS: REMDESIVIR 100mg 100 MG in SODIUM CHL 0.9% 230 ML IV SCH (16:43)
[2021-04-25] MEDS: MURO EACHEYE SCH (22:21)
[2021-04-25] MEDS: ATORVASTATIN 20 MG TAB PO SCH (22:21)
[2021-04-26 05:00] VITALS: BP 102/53
[2021-04-26 08:00] VITALS: BP 97/55
[2021-04-26 09:00] VITALS: BP 97/55
[2021-04-26] MEDS: [UNRECOGNIZED DRUG - OTHER] EACHEYE PRN ×2 (09:10→15:15)
[2021-04-26] MEDS: cefTRIAXone 1GM/50ML D5W 50 ML IV SCH (09:25)
[2021-04-26] MEDS: FUROSEMIDE 20 MG/2 ML VIAL IV SCH (09:25)
[2021-04-26] MEDS: DexAMETHasone SOD PHOS 4 MG/1ML SDV INJ IV SCH (09:25)
[2021-04-26] MEDS: APIXABAN 5 MG TAB PO SCH ×2 (09:26→22:10)
[2021-04-26] MEDS: ZINC SULFATE 220mg CAP or TAB PO SCH (09:26)
[2021-04-26] MEDS: PANTOPRAZOLE 40 MG TAB PO SCH (09:27)
[2021-04-26] MEDS: METOPROLOL TARTRATE 25 MG TAB PO SCH ×2 (09:27→22:10)
[2021-04-26] MEDS: ALPRAZolam 0.25 MG TAB PO SCH ×2 (09:28→22:11)
[2021-04-26] MEDS: ASCORBIC ACID 500 MG TAB PO SCH (09:28)
[2021-04-26] MEDS: LISINOPRIL 5 MG TAB PO SCH (09:28)
[2021-04-26] MEDS: AZITHROMYCIN 250 MG TAB PO SCH (09:28)
[2021-04-26 13:00] VITALS: BP 102/52
[2021-04-26] MEDS: REMDESIVIR 100mg 100 MG in SODIUM CHL 0.9% 230 ML IV SCH (15:55)
[2021-04-26] MEDS ORDERED: LACTULOSE 20Gm/30ML SOLN PO ONE (16:00)
[2021-04-26 17:00] VITALS: BP 105/67
[2021-04-26 22:00] VITALS: BP 106/53
[2021-04-26] MEDS: ATORVASTATIN 20 MG TAB PO SCH (22:10)
[2021-04-26] MEDS: MURO EACHEYE SCH (22:11)
[2021-04-26] MEDS: LACTULOSE 20Gm/30ML SOLN PO SCH (22:11)
[2021-04-27 05:00] VITALS: BP 98/47
[2021-04-27 09:00] VITALS: BP 124/66
[2021-04-27] MEDS: LACTULOSE 20Gm/30ML SOLN PO SCH ×2 (11:15→22:33)
[2021-04-27] MEDS: ASCORBIC ACID 500 MG TAB PO SCH (11:16)
[2021-04-27] MEDS: AZITHROMYCIN 250 MG TAB PO SCH (11:16)
[2021-04-27] MEDS: APIXABAN 5 MG TAB PO SCH ×2 (11:17→22:34)
[2021-04-27] MEDS: DexAMETHasone 4 MG TAB PO SCH (11:17)
[2021-04-27] MEDS: LISINOPRIL 5 MG TAB PO SCH (11:17)
[2021-04-27] MEDS: ZINC SULFATE 220mg CAP or TAB PO SCH (11:17)
[2021-04-27] MEDS: PANTOPRAZOLE 40 MG TAB PO SCH (11:17)
[2021-04-27] MEDS: ALPRAZolam 0.25 MG TAB PO SCH ×2 (11:17→22:34)
[2021-04-27] MEDS: METOPROLOL TARTRATE 25 MG TAB PO SCH ×3 (11:18→22:48)
[2021-04-27] MEDS: FUROSEMIDE 20 MG TAB PO SCH (11:18)
[2021-04-27 13:00] VITALS: BP 110/55
[2021-04-27] MEDS: REMDESIVIR 100mg 100 MG in SODIUM CHL 0.9% 230 ML IV SCH (16:20)
[2021-04-27 17:00] VITALS: BP 104/59
[2021-04-27 22:00] VITALS: BP_SYST 108; BP_SYST 110; BP_DIAS 53; BP_DIAS 54
[2021-04-27] MEDS: MURO EACHEYE SCH (22:33)
[2021-04-27] MEDS: ATORVASTATIN 20 MG TAB PO SCH (22:34)
[2021-04-28 05:00] VITALS: BP 109/76
[2021-04-28 09:00] VITALS: BP 110/64
[2021-04-28] MEDS: ALPRAZolam 0.25 MG TAB PO SCH ×2 (09:57→21:52)
[2021-04-28] MEDS: AZITHROMYCIN 250 MG TAB PO SCH (09:57)
[2021-04-28] MEDS: APIXABAN 5 MG TAB PO SCH ×2 (09:58→21:52)
[2021-04-28] MEDS: PANTOPRAZOLE 40 MG TAB PO SCH (09:58)
[2021-04-28] MEDS: DexAMETHasone 4 MG TAB PO SCH (09:58)
[2021-04-28] MEDS: ZINC SULFATE 220mg CAP or TAB PO SCH (09:58)
[2021-04-28] MEDS: ASCORBIC ACID 500 MG TAB PO SCH (09:58)
[2021-04-28] MEDS: METOPROLOL TARTRATE 25 MG TAB PO SCH ×2 (10:00→21:39)
[2021-04-28] MEDS: LACTULOSE 20Gm/30ML SOLN PO SCH ×3 (10:00→21:52)
[2021-04-28] MEDS: LISINOPRIL 5 MG TAB PO SCH (10:00)
[2021-04-28] MEDS: FUROSEMIDE 20 MG TAB PO SCH (10:00)
[2021-04-28 12:55] VITALS: BP 95/62
[2021-04-28 17:00] VITALS: BP 92/58
[2021-04-28] MEDS: ATORVASTATIN 20 MG TAB PO SCH (21:52)
[2021-04-28] MEDS: MURO EACHEYE SCH (21:52)
[2021-04-28] MEDS: [UNRECOGNIZED DRUG - OTHER] EACHEYE PRN (21:54)
[2021-04-28 21:57] VITALS: BP 95/57
[2021-04-29 05:01] VITALS: BP 98/55
[2021-04-29 07:04] LABS: Basophils # (auto) 0 10 ^3/uL (0-0.2); Basophils % (auto) 0.1 % (0.0-2.0); Eosinophils # (auto) 0 10 ^3/uL (0-0.8); Eosinophils % (auto) 0.1 % (0.0-7.0); Hematocrit 27.4 % (36.0-46.0); Hemoglobin 9.2 g/dL (12.2-16.2); Lymphocytes % (auto) 14.6 % (10.0-50.0); Mean Corpuscular Hemoglobin 29.4 pg (28.0-32.0); Mean Corpuscular Hgb Conc. 33.5 g/dL (32.0-36.0); Mean Corpuscular Volume 87.7 fL (80.0-100.0); Monocytes # (auto) 0.7 10 ^3/uL (0-1.3); Monocytes % (auto) 10.7 % (0.0-12.0); Neutrophils # (auto) 5.2 10 ^3/uL (1.6-8.6); Neutrophils % (auto) 74.5 % (37.0-80.0); Red Blood Cells 3.12 10^6/uL (4.0-5.20); Red Cell Distribution Width 14.4 % (11.8-14.3); White Blood Cell 6.9 10^3/uL (4.4-10.8)
[2021-04-29 07:07] LABS: Albumin 2.4 g/dL (3.4-5.0); Potassium 3.6 mmol/L (3.5-5.1)
[2021-04-29 07:11] LABS: BUN/Creatinine Ratio 42.9; Bilirubin, Total 0.2 mg/dL (0.2-1.0)
[2021-04-29 08:00] VITALS: BP 114/72
[2021-04-29] MEDS: LISINOPRIL 5 MG TAB PO SCH (10:00)
[2021-04-29] MEDS: METOPROLOL TARTRATE 25 MG TAB PO SCH ×2 (10:09→22:00)
[2021-04-29] MEDS: DexAMETHasone 4 MG TAB PO SCH (10:09)
[2021-04-29] MEDS: ZINC SULFATE 220mg CAP or TAB PO SCH (10:09)
[2021-04-29] MEDS: LACTULOSE 20Gm/30ML SOLN PO SCH ×2 (10:09→22:00)
[2021-04-29] MEDS: APIXABAN 5 MG TAB PO SCH ×2 (10:09→22:40)
[2021-04-29] MEDS: FUROSEMIDE 20 MG TAB PO SCH (10:09)
[2021-04-29] MEDS: ASCORBIC ACID 500 MG TAB PO SCH (10:09)
[2021-04-29] MEDS: PANTOPRAZOLE 40 MG TAB PO SCH (10:09)
[2021-04-29] MEDS: AZITHROMYCIN 250 MG TAB PO SCH (10:10)
[2021-04-29] MEDS: ALPRAZolam 0.25 MG TAB PO SCH ×2 (10:10→22:40)
[2021-04-29 12:11] VITALS: BP 114/55
[2021-04-29 17:03] VITALS: BP 103/49
[2021-04-29 22:00] VITALS: BP 95/45
[2021-04-29] MEDS: MURO EACHEYE SCH (22:00)
[2021-04-29] MEDS: ATORVASTATIN 20 MG TAB PO SCH (22:40)
[2021-04-30 05:00] VITALS: BP 102/41
[2021-04-30] MEDS: LACTULOSE 20Gm/30ML SOLN PO SCH ×2 (08:41→21:47)
[2021-04-30] MEDS: DexAMETHasone 4 MG TAB PO SCH (08:41)
[2021-04-30] MEDS: ASCORBIC ACID 500 MG TAB PO SCH (08:41)
[2021-04-30] MEDS: ZINC SULFATE 220mg CAP or TAB PO SCH (08:41)
[2021-04-30] MEDS: APIXABAN 5 MG TAB PO SCH ×2 (08:41→21:48)
[2021-04-30] MEDS: AZITHROMYCIN 250 MG TAB PO SCH (08:41)
[2021-04-30] MEDS: PANTOPRAZOLE 40 MG TAB PO SCH (08:41)
[2021-04-30 09:00] VITALS: BP 120/65
[2021-04-30] MEDS: FUROSEMIDE 20 MG TAB PO SCH (10:00)
[2021-04-30] MEDS: METOPROLOL TARTRATE 25 MG TAB PO SCH ×2 (10:00→21:45)
[2021-04-30] MEDS ORDERED: ALPRAZolam 0.25 MG TAB PO PRN (11:45)
[2021-04-30] MEDS: ERGOCALCIFEROL 50,000 UNIT(1.25MG) CAP PO SCH (12:00)
[2021-04-30 13:00] VITALS: BP 92/31
[2021-04-30] MEDS: ONDANSETRON HCL 4 MG/2 ML VIAL IV PRN (15:13)
[2021-04-30 17:00] VITALS: BP 99/50
[2021-04-30] MEDS: MURO EACHEYE SCH (21:46)
[2021-04-30] MEDS: ATORVASTATIN 20 MG TAB PO SCH (21:48)
[2021-04-30 22:00] VITALS: BP 92/43
[2021-04-30] MEDS: [UNRECOGNIZED DRUG - OTHER] EACHEYE PRN (22:05)
[2021-05-01 05:00] VITALS: BP 122/47
[2021-05-01 08:50] VITALS: BP 107/54
[2021-05-01] MEDS: METOPROLOL TARTRATE 25 MG TAB PO SCH ×2 (09:10→21:56)
[2021-05-01] MEDS: PANTOPRAZOLE 40 MG TAB PO SCH (09:11)
[2021-05-01] MEDS: ONDANSETRON ODT 4 MG TAB PO PRN (09:11)
[2021-05-01] MEDS ORDERED: METOPROLOL TARTRATE 25 MG TAB PO ONE ×2 (11:00)
[2021-05-01] MEDS ORDERED: DIGOXIN (250MCG/ML) 2 ML AMPULE IV ONE ×2 (11:00)
[2021-05-01] MEDS: DexAMETHasone 4 MG TAB PO SCH (11:39)
[2021-05-01] MEDS: ZINC SULFATE 220mg CAP or TAB PO SCH (11:39)
[2021-05-01] MEDS: LACTULOSE 20Gm/30ML SOLN PO SCH ×2 (11:39→21:55)
[2021-05-01] MEDS: APIXABAN 5 MG TAB PO SCH ×2 (11:40→21:55)
[2021-05-01] MEDS: FUROSEMIDE 20 MG TAB PO SCH (11:40)
[2021-05-01] MEDS: AZITHROMYCIN 250 MG TAB PO SCH (11:41)
[2021-05-01] MEDS: ASCORBIC ACID 500 MG TAB PO SCH (11:41)
[2021-05-01 13:00] VITALS: BP 93/52
[2021-05-01] MEDS: MORPHINE SULFATE INJECTION 2 MG/ML SYRG IV PRN (14:15)
[2021-05-01] MEDS ORDERED: NALOXONE HCL 1MG/ML 2ML SYRINGE IV ONE (15:00)
[2021-05-01] MEDS ORDERED: MORPHINE SULFATE INJECTION 2 MG/ML SYRG IM ONE (16:15)
[2021-05-01] MEDS: NITROGLYCERIN 0.4 MG SL TAB SL PRN (16:27)
[2021-05-01] MEDS ORDERED: MORPHINE SULFATE INJECTION 2 MG/ML SYRG IV ONE (16:30)
[2021-05-01 17:00] VITALS: BP_SYST 85; BP_SYST 98; BP_DIAS 48; BP_DIAS 53
[2021-05-01] MEDS: ACETAMINOPHEN 325 MG TAB PO PRN (18:11)
[2021-05-01] MEDS: SODIUM CHLORIDE 0.9% 1,000 ML IV SCH ×2 (18:23→21:55)
[2021-05-01] MEDS: MURO EACHEYE SCH (21:55)
[2021-05-01] MEDS: ATORVASTATIN 20 MG TAB PO SCH (21:56)
[2021-05-01 22:00] VITALS: BP_SYST 101; BP_SYST 86; BP_SYST 93; BP_DIAS 43; BP_DIAS 45; BP_DIAS 51
[2021-05-02] VITALS (12 sets, daily range): BP systolic 96–120; BP diastolic 32–58
[2021-05-02] MEDS ORDERED: DIGOXIN (250MCG/ML) 2 ML AMPULE IV ONE ×2 (02:30→09:45)
[2021-05-02] MEDS: ASCORBIC ACID 500 MG TAB PO SCH (09:01)
[2021-05-02] MEDS: LACTULOSE 20Gm/30ML SOLN PO SCH ×2 (09:01→22:21)
[2021-05-02] MEDS: PANTOPRAZOLE 40 MG TAB PO SCH (09:01)
[2021-05-02] MEDS: ZINC SULFATE 220mg CAP or TAB PO SCH (09:01)
[2021-05-02] MEDS: APIXABAN 5 MG TAB PO SCH (09:01)
[2021-05-02] MEDS: DexAMETHasone 4 MG TAB PO SCH (09:01)
[2021-05-02] MEDS: FUROSEMIDE 20 MG TAB PO SCH (09:02)
[2021-05-02] MEDS: METOPROLOL TARTRATE 25 MG TAB PO SCH (09:02)
[2021-05-02] MEDS: NITROGLYCERIN 0.4 MG SL TAB SL PRN (09:20)
[2021-05-02] MEDS ORDERED: AMIODARONE HCL 150 MG in D5W 5% 100 ML IV ONE (09:45)
[2021-05-02] MEDS ORDERED: AMIODARONE 450mg/250ml AE 250 ML IV SCH (10:00)
[2021-05-02] MEDS: AZITHROMYCIN 250 MG TAB PO SCH (11:24)
[2021-05-02 11:52] LABS: Basophils # (auto) 0 10 ^3/uL (0-0.2); Eosinophils # (auto) 0 10 ^3/uL (0-0.8); Hematocrit 16.1 % (36.0-46.0); Lymphocytes # (auto) 0.5 10 ^3/uL (0.4-5.4); Mean Corpuscular Hemoglobin 28.6 pg (28.0-32.0); Monocytes # (auto) 1.1 10 ^3/uL (0-1.3)
[2021-05-02 11:54] LABS: Basophils % (auto) 0.1 % (0.0-2.0); Eosinophils % (auto) 0.3 % (0.0-7.0); Lymphocytes % (auto) 4.8 % (10.0-50.0); Mean Corpuscular Hgb Conc. 32.1 g/dL (32.0-36.0); Mean Corpuscular Volume 88.9 fL (80.0-100.0); Neutrophils # (auto) 9.5 10 ^3/uL (1.6-8.6); Neutrophils % (auto) 84.8 % (37.0-80.0); Nucleated Red Blood Cells % 0.4 %; Red Cell Distribution Width 14.2 % (11.8-14.3); White Blood Cell 11.2 10^3/uL (4.4-10.8)
[2021-05-02 12:05] LABS: Hemoglobin 5.2 g/dL (12.2-16.2)
[2021-05-02 12:13] LABS: Albumin 1.9 g/dL (3.4-5.0); Calcium 7.3 mg/dL (8.5-10.1); Potassium 4.1 mmol/L (3.5-5.1)
[2021-05-02] MEDS ORDERED: NALOXONE HCL 1MG/ML 2ML SYRINGE IV ONE (12:17)
[2021-05-02 12:19] LABS: BUN/Creatinine Ratio 50.9; Bilirubin, Total 0.2 mg/dL (0.2-1.0); Total Protein 4.3 g/dL (6.4-8.2)
[2021-05-02] MEDS ORDERED: PANTOPRAZOLE 40 MG/10 ML VIAL INJ IV ONE (14:45)
[2021-05-02] MEDS: AMIODARONE 450mg/250ml AE 250 ML IV SCH ×2 (17:30→23:19)
[2021-05-02] MEDS: MURO EACHEYE SCH (22:00)
[2021-05-02] MEDS: ATORVASTATIN 20 MG TAB PO SCH (22:21)
[2021-05-02] MEDS: PANTOPRAZOLE 40 MG/10 ML VIAL INJ IV SCH (22:21)
[2021-05-03] MEDS: SODIUM CHLORIDE 0.9% 1,000 ML IV SCH ×2 (04:02→20:37)
[2021-05-03 05:18] VITALS: BP 113/59
[2021-05-03] MEDS: ACETAMINOPHEN 325 MG TAB PO PRN (06:56)
[2021-05-03 07:13] LABS: BUN/Creatinine Ratio 42.9; Basophils # (auto) 0 10 ^3/uL (0-0.2); Basophils % (auto) 0.2 % (0.0-2.0); Calcium 7.2 mg/dL (8.5-10.1); Eosinophils # (auto) 0 10 ^3/uL (0-0.8); Eosinophils % (auto) 0.3 % (0.0-7.0); Hematocrit 21.6 % (36.0-46.0); Hemoglobin 7.2 g/dL (12.2-16.2); Lymphocytes # (auto) 1.1 10 ^3/uL (0.4-5.4); Mean Corpuscular Hemoglobin 29.1 pg (28.0-32.0); Mean Corpuscular Hgb Conc. 33.1 g/dL (32.0-36.0); Mean Corpuscular Volume 87.9 fL (80.0-100.0); Monocytes # (auto) 1.5 10 ^3/uL (0-1.3); Neutrophils # (auto) 8.6 10 ^3/uL (1.6-8.6); Neutrophils % (auto) 76.5 % (37.0-80.0); Nucleated Red Blood Cells % 0.7 %; Potassium 3.9 mmol/L (3.5-5.1); Red Blood Cells 2.46 10^6/uL (4.0-5.20); White Blood Cell 11.2 10^3/uL (4.4-10.8)
[2021-05-03 09:00] VITALS: BP 108/48
[2021-05-03] MEDS: AZITHROMYCIN 250 MG TAB PO SCH (09:33)
[2021-05-03] MEDS: PANTOPRAZOLE 40 MG/10 ML VIAL INJ IV SCH ×2 (09:33→22:02)
[2021-05-03] MEDS: LACTULOSE 20Gm/30ML SOLN PO SCH ×2 (09:33→22:02)
[2021-05-03] MEDS ORDERED: AMIODARONE HCL 200 MG TAB PO ONE (10:30)
[2021-05-03 13:00] VITALS: BP 122/51
[2021-05-03 17:00] VITALS: BP 117/46
[2021-05-03 22:00] VITALS: BP 101/72
[2021-05-03] MEDS: MURO EACHEYE SCH (22:00)
[2021-05-03] MEDS: AMIODARONE HCL 200 MG TAB PO SCH (22:03)
[2021-05-03] MEDS: ATORVASTATIN 20 MG TAB PO SCH (22:03)
[2021-05-04] VITALS (11 sets, daily range): BP systolic 95–146; BP diastolic 45–77
[2021-05-04] MEDS: SODIUM CHLORIDE 0.9% 1,000 ML IV SCH (05:57)
[2021-05-04] MEDS: ONDANSETRON ODT 4 MG TAB PO PRN (06:28)
[2021-05-04] MEDS: ACETAMINOPHEN 325 MG TAB PO PRN (06:29)
[2021-05-04 07:14] LABS: Basophils # (auto) 0 10 ^3/uL (0-0.2); Basophils % (auto) 0.1 % (0.0-2.0); Eosinophils # (auto) 0.1 10 ^3/uL (0-0.8); Lymphocytes # (auto) 0.6 10 ^3/uL (0.4-5.4); Nucleated Red Blood Cells % 0.2 %; Red Cell Distribution Width 14.6 % (11.8-14.3); White Blood Cell 8.7 10^3/uL (4.4-10.8)
[2021-05-04 07:21] LABS: Eosinophils % (auto) 0.9 % (0.0-7.0); Hematocrit 18.8 % (36.0-46.0); Lymphocytes % (auto) 7.4 % (10.0-50.0); Mean Corpuscular Hemoglobin 30.6 pg (28.0-32.0); Mean Corpuscular Hgb Conc. 32.6 g/dL (32.0-36.0); Mean Corpuscular Volume 93.7 fL (80.0-100.0); Monocytes # (auto) 1.1 10 ^3/uL (0-1.3); Monocytes % (auto) 12.2 % (0.0-12.0); Neutrophils # (auto) 6.9 10 ^3/uL (1.6-8.6); Neutrophils % (auto) 79.4 % (37.0-80.0)
[2021-05-04 07:30] LABS: Hemoglobin 6.1 g/dL (12.2-16.2); Potassium 3.7 mmol/L (3.5-5.1)
[2021-05-04 07:36] LABS: BUN/Creatinine Ratio 48.8; Calcium 7.1 mg/dL (8.5-10.1)
[2021-05-04] MEDS: PANTOPRAZOLE 40 MG/10 ML VIAL INJ IV SCH ×2 (09:30→22:13)
[2021-05-04] MEDS: AMIODARONE HCL 200 MG TAB PO SCH ×2 (09:30→22:13)
[2021-05-04] MEDS: LACTULOSE 20Gm/30ML SOLN PO SCH ×2 (09:30→22:13)
[2021-05-04] MEDS ORDERED: METOPROLOL TARTRATE 1MG/1ML-5ML VIAL IV PRN (19:30)
[2021-05-04 19:33] LABS: Basophils # (auto) 0.1 10 ^3/uL (0-0.2); Basophils % (auto) 0.6 % (0.0-2.0); Eosinophils # (auto) 0.9 10 ^3/uL (0-0.8); Hematocrit 27.9 % (36.0-46.0); Hemoglobin 9.2 g/dL (12.2-16.2); Lymphocytes # (auto) 0.7 10 ^3/uL (0.4-5.4); Lymphocytes % (auto) 6.3 % (10.0-50.0); Mean Corpuscular Hemoglobin 29.5 pg (28.0-32.0); Mean Corpuscular Hgb Conc. 32.9 g/dL (32.0-36.0); Mean Corpuscular Volume 89.7 fL (80.0-100.0); Monocytes # (auto) 0.9 10 ^3/uL (0-1.3); Monocytes % (auto) 7.7 % (0.0-12.0); Neutrophils # (auto) 8.5 10 ^3/uL (1.6-8.6); Neutrophils % (auto) 77.4 % (37.0-80.0); Nucleated Red Blood Cells % 0.5 %; Red Blood Cells 3.11 10^6/uL (4.0-5.20); Red Cell Distribution Width 16.1 % (11.8-14.3)
[2021-05-04] MEDS: MURO EACHEYE SCH (22:00)
[2021-05-04] MEDS: [UNRECOGNIZED DRUG - OTHER] EACHEYE PRN (22:13)
[2021-05-04] MEDS: ATORVASTATIN 20 MG TAB PO SCH (22:16)
[2021-05-05 05:00] VITALS: BP 132/57
[2021-05-05 09:00] VITALS: BP 134/68
[2021-05-05] MEDS: PANTOPRAZOLE 40 MG/10 ML VIAL INJ IV SCH ×2 (10:00→21:43)
[2021-05-05] MEDS: LACTULOSE 20Gm/30ML SOLN PO SCH ×2 (10:00→21:44)
[2021-05-05] MEDS: SUCRALFATE 1 GM/10 ML ORAL SUSP PO SCH ×2 (11:14→17:00)
[2021-05-05] MEDS: AMIODARONE HCL 200 MG TAB PO SCH ×2 (11:14→21:26)
[2021-05-05] MEDS ORDERED: SUCRALFATE 1 GM/10 ML ORAL SUSP PO SCH (11:30)
[2021-05-05 13:00] VITALS: BP 129/70
[2021-05-05 15:51] LABS: Basophils # (auto) 0 10 ^3/uL (0-0.2); Basophils % (auto) 0.4 % (0.0-2.0); Eosinophils # (auto) 0.1 10 ^3/uL (0-0.8); Eosinophils % (auto) 0.6 % (0.0-7.0); Hematocrit 27.8 % (36.0-46.0); Lymphocytes # (auto) 0.6 10 ^3/uL (0.4-5.4); Lymphocytes % (auto) 4.7 % (10.0-50.0); Mean Corpuscular Hemoglobin 28.6 pg (28.0-32.0); Mean Corpuscular Hgb Conc. 32.3 g/dL (32.0-36.0); Mean Corpuscular Volume 88.4 fL (80.0-100.0); Monocytes % (auto) 8.3 % (0.0-12.0); Red Blood Cells 3.14 10^6/uL (4.0-5.20); Red Cell Distribution Width 15.3 % (11.8-14.3); White Blood Cell 11.6 10^3/uL (4.4-10.8)
[2021-05-05 16:05] LABS: BUN/Creatinine Ratio 38.5; Calcium 7.7 mg/dL (8.5-10.1); Potassium 3.9 mmol/L (3.5-5.1)
[2021-05-05 17:26] VITALS: BP 135/75
[2021-05-05] MEDS: ATORVASTATIN 20 MG TAB PO SCH (21:43)
[2021-05-05 22:00] VITALS: BP 128/68
[2021-05-05] MEDS: MURO EACHEYE SCH (22:00)
[2021-05-06 05:00] VITALS: BP 120/58
[2021-05-06] MEDS: SUCRALFATE 1 GM/10 ML ORAL SUSP PO SCH ×3 (07:00→17:32)
[2021-05-06 07:56] LABS: Basophils # (auto) 0 10 ^3/uL (0-0.2); Basophils % (auto) 0.4 % (0.0-2.0); Eosinophils # (auto) 0.1 10 ^3/uL (0-0.8); Eosinophils % (auto) 0.8 % (0.0-7.0); Hematocrit 28.4 % (36.0-46.0); Hemoglobin 9.3 g/dL (12.2-16.2); Lymphocytes # (auto) 0.6 10 ^3/uL (0.4-5.4); Lymphocytes % (auto) 4.6 % (10.0-50.0); Mean Corpuscular Hemoglobin 29.3 pg (28.0-32.0); Mean Corpuscular Hgb Conc. 32.7 g/dL (32.0-36.0); Mean Corpuscular Volume 89.6 fL (80.0-100.0); Monocytes # (auto) 1.1 10 ^3/uL (0-1.3); Monocytes % (auto) 8.3 % (0.0-12.0); Neutrophils # (auto) 11.2 10 ^3/uL (1.6-8.6); Neutrophils % (auto) 85.9 % (37.0-80.0); Nucleated Red Blood Cells % 0.1 %; Red Blood Cells 3.18 10^6/uL (4.0-5.20); Red Cell Distribution Width 15.2 % (11.8-14.3)
[2021-05-06 08:20] LABS: Calcium 7.7 mg/dL (8.5-10.1); Potassium 3.8 mmol/L (3.5-5.1)
[2021-05-06 08:30] VITALS: BP 116/77
[2021-05-06] MEDS: PANTOPRAZOLE 40 MG/10 ML VIAL INJ IV SCH ×2 (10:05→21:55)
[2021-05-06] MEDS: LACTULOSE 20Gm/30ML SOLN PO SCH ×2 (10:05→21:55)
[2021-05-06] MEDS: AMIODARONE HCL 200 MG TAB PO SCH ×2 (10:05→21:55)
[2021-05-06 12:30] VITALS: BP 126/78
[2021-05-06] MEDS ORDERED: POTASSIUM CHL 20 Meq TABLET PO ONE (12:30)
[2021-05-06] MEDS ORDERED: FUROSEMIDE 20 MG/2 ML VIAL IV ONE (12:30)
[2021-05-06 17:00] VITALS: BP 139/65
[2021-05-06] MEDS: ATORVASTATIN 20 MG TAB PO SCH (21:55)
[2021-05-06] MEDS: MURO EACHEYE SCH (21:55)
[2021-05-06 22:00] VITALS: BP 123/51
[2021-05-06 22:35] VITALS: BP 119/56
[2021-05-07 05:00] VITALS: BP 118/54
[2021-05-07] MEDS: SUCRALFATE 1 GM/10 ML ORAL SUSP PO SCH ×3 (07:00→17:27)
[2021-05-07 08:08] LABS: Potassium 3.9 mmol/L (3.5-5.1)
[2021-05-07 08:20] LABS: BUN/Creatinine Ratio 40.6; Calcium 7.7 mg/dL (8.5-10.1)
[2021-05-07] MEDS: POTASSIUM CHL 20 Meq TABLET PO SCH (08:59)
[2021-05-07] MEDS: LACTULOSE 20Gm/30ML SOLN PO SCH ×2 (08:59→21:52)
[2021-05-07] MEDS: PANTOPRAZOLE 40 MG/10 ML VIAL INJ IV SCH ×2 (08:59→21:51)
[2021-05-07] MEDS: FUROSEMIDE 20 MG/2 ML VIAL IV SCH (08:59)
[2021-05-07] MEDS: AMIODARONE HCL 200 MG TAB PO SCH ×2 (09:00→21:51)
[2021-05-07 10:42] LABS: Basophils # (auto) 0 10 ^3/uL (0-0.2); Basophils % (auto) 0.3 % (0.0-2.0); Eosinophils # (auto) 0.1 10 ^3/uL (0-0.8); Eosinophils % (auto) 1.4 % (0.0-7.0); Hematocrit 30.9 % (36.0-46.0); Hemoglobin 9.9 g/dL (12.2-16.2); Lymphocytes # (auto) 0.5 10 ^3/uL (0.4-5.4); Lymphocytes % (auto) 6.2 % (10.0-50.0); Mean Corpuscular Hemoglobin 28.5 pg (28.0-32.0); Mean Corpuscular Volume 89.1 fL (80.0-100.0); Monocytes # (auto) 0.6 10 ^3/uL (0-1.3); Monocytes % (auto) 8.2 % (0.0-12.0); Neutrophils # (auto) 6.5 10 ^3/uL (1.6-8.6); Neutrophils % (auto) 83.9 % (37.0-80.0); Nucleated Red Blood Cells % 0.1 %; Red Blood Cells 3.47 10^6/uL (4.0-5.20); Red Cell Distribution Width 15.7 % (11.8-14.3); White Blood Cell 7.7 10^3/uL (4.4-10.8)
[2021-05-07] MEDS: ERGOCALCIFEROL 50,000 UNIT(1.25MG) CAP PO SCH (11:34)
[2021-05-07 13:00] VITALS: BP 96/71
[2021-05-07 17:00] VITALS: BP 117/56
[2021-05-07] MEDS: MURO EACHEYE SCH (21:51)
[2021-05-07] MEDS: ATORVASTATIN 20 MG TAB PO SCH (21:51)
[2021-05-07] MEDS: ACETAMINOPHEN 325 MG TAB PO PRN (21:51)
[2021-05-07 22:00] VITALS: BP 103/46
[2021-05-08 05:00] VITALS: BP 145/43
[2021-05-08] MEDS: SUCRALFATE 1 GM/10 ML ORAL SUSP PO SCH ×3 (06:29→17:09)
[2021-05-08 09:00] VITALS: BP 108/81
[2021-05-08] MEDS: PANTOPRAZOLE 40 MG/10 ML VIAL INJ IV SCH ×2 (10:22→22:20)
[2021-05-08] MEDS: AMIODARONE HCL 200 MG TAB PO SCH ×2 (10:22→22:21)
[2021-05-08] MEDS: LACTULOSE 20Gm/30ML SOLN PO SCH ×2 (10:22→22:20)
[2021-05-08] MEDS: POTASSIUM CHL 20 Meq TABLET PO SCH (10:22)
[2021-05-08] MEDS: FUROSEMIDE 20 MG/2 ML VIAL IV SCH (10:23)
[2021-05-08 13:16] VITALS: BP 117/48
[2021-05-08 16:55] VITALS: BP 106/64
[2021-05-08 21:34] VITALS: BP 130/66
[2021-05-08] MEDS: MURO EACHEYE SCH (22:20)
[2021-05-08] MEDS: ATORVASTATIN 20 MG TAB PO SCH (22:21)
[2021-05-09] MEDS: ACETAMINOPHEN 325 MG TAB PO PRN (04:31)
[2021-05-09 05:00] VITALS: BP 118/71
[2021-05-09] MEDS: ONDANSETRON ODT 4 MG TAB PO PRN (06:36)
[2021-05-09] MEDS: SUCRALFATE 1 GM/10 ML ORAL SUSP PO SCH ×3 (06:36→17:00)
[2021-05-09 09:00] VITALS: BP 108/56
[2021-05-09] MEDS: POTASSIUM CHL 20 Meq TABLET PO SCH (10:16)
[2021-05-09] MEDS: FUROSEMIDE 20 MG/2 ML VIAL IV SCH (10:16)
[2021-05-09] MEDS: LACTULOSE 20Gm/30ML SOLN PO SCH ×2 (10:16→22:02)
[2021-05-09] MEDS: AMIODARONE HCL 200 MG TAB PO SCH ×2 (10:16→22:03)
[2021-05-09] MEDS: PANTOPRAZOLE 40 MG/10 ML VIAL INJ IV SCH ×2 (10:16→22:02)
[2021-05-09 13:00] VITALS: BP 104/60
[2021-05-09 17:00] VITALS: BP 104/63
[2021-05-09 22:00] VITALS: BP 93/41
[2021-05-09] MEDS: MURO EACHEYE SCH (22:02)
[2021-05-09] MEDS: ATORVASTATIN 20 MG TAB PO SCH (22:03)
[2021-05-10] VITALS (7 sets, daily range): BP systolic 100–120; BP diastolic 40–60
[2021-05-10] MEDS: ACETAMINOPHEN 325 MG TAB PO PRN ×2 (02:25→22:18)
[2021-05-10] MEDS: SUCRALFATE 1 GM/10 ML ORAL SUSP PO SCH ×3 (06:33→18:00)
[2021-05-10 09:17] LABS: Basophils # (auto) 0 10 ^3/uL (0-0.2); Basophils % (auto) 0.7 % (0.0-2.0); Eosinophils # (auto) 0.1 10 ^3/uL (0-0.8); Hemoglobin 8.2 g/dL (12.2-16.2); Lymphocytes # (auto) 0.8 10 ^3/uL (0.4-5.4); Monocytes # (auto) 0.6 10 ^3/uL (0-1.3); White Blood Cell 5.1 10^3/uL (4.4-10.8)
[2021-05-10 09:18] LABS: Eosinophils % (auto) 2.4 % (0.0-7.0); Lymphocytes % (auto) 15.7 % (10.0-50.0); Mean Corpuscular Hemoglobin 29.5 pg (28.0-32.0); Mean Corpuscular Volume 89.3 fL (80.0-100.0); Neutrophils # (auto) 3.6 10 ^3/uL (1.6-8.6); Neutrophils % (auto) 69.2 % (37.0-80.0); Nucleated Red Blood Cells % 0.1 %; Red Blood Cells 2.79 10^6/uL (4.0-5.20); Red Cell Distribution Width 15.2 % (11.8-14.3)
[2021-05-10 09:28] LABS: Potassium 3.6 mmol/L (3.5-5.1)
[2021-05-10 09:37] LABS: Albumin 1.9 g/dL (3.4-5.0); BUN/Creatinine Ratio 27.1; Bilirubin, Total 0.4 mg/dL (0.2-1.0); Calcium 7.5 mg/dL (8.5-10.1); Total Protein 4.4 g/dL (6.4-8.2)
[2021-05-10] MEDS: FUROSEMIDE 20 MG/2 ML VIAL IV SCH (09:45)
[2021-05-10] MEDS: PANTOPRAZOLE 40 MG/10 ML VIAL INJ IV SCH (09:45)
[2021-05-10] MEDS: LACTULOSE 20Gm/30ML SOLN PO SCH ×2 (09:45→22:10)
[2021-05-10] MEDS: POTASSIUM CHL 20 Meq TABLET PO SCH (09:46)
[2021-05-10] MEDS: AMIODARONE HCL 200 MG TAB PO SCH ×2 (09:46→22:10)
[2021-05-10] MEDS: PANTOPRAZOLE 40 MG TAB PO SCH (22:10)
[2021-05-10] MEDS: ATORVASTATIN 20 MG TAB PO SCH (22:10)
[2021-05-10] MEDS: MURO EACHEYE SCH (22:11)
[2021-05-11 05:55] VITALS: BP 128/90
[2021-05-11] MEDS: SUCRALFATE 1 GM/10 ML ORAL SUSP PO SCH ×3 (06:47→16:25)
[2021-05-11 09:00] VITALS: BP 128/59
[2021-05-11] MEDS: LACTULOSE 20Gm/30ML SOLN PO SCH ×2 (09:10→22:20)
[2021-05-11] MEDS: PANTOPRAZOLE 40 MG TAB PO SCH ×2 (09:11→22:20)
[2021-05-11] MEDS: AMIODARONE HCL 200 MG TAB PO SCH ×2 (09:11→22:20)
[2021-05-11] MEDS: POTASSIUM CHL 20 Meq TABLET PO SCH (09:11)
[2021-05-11 12:42] VITALS: BP 134/61
[2021-05-11 16:56] VITALS: BP 114/63
[2021-05-11 20:00] VITALS: BP 120/72
[2021-05-11 21:47] VITALS: BP 120/72
[2021-05-11] MEDS: ATORVASTATIN 20 MG TAB PO SCH (22:20)
[2021-05-11] MEDS: MURO EACHEYE SCH (22:20)
[2021-05-11] MEDS: [UNRECOGNIZED DRUG - OTHER] EACHEYE PRN (22:47)
[2021-05-11] MEDS: ACETAMINOPHEN 325 MG TAB PO PRN (22:48)
[2021-05-12 06:05] VITALS: BP 126/69
[2021-05-12] MEDS: SUCRALFATE 1 GM/10 ML ORAL SUSP PO SCH ×3 (06:42→16:14)
[2021-05-12] MEDS: [UNRECOGNIZED DRUG - OTHER] EACHEYE PRN ×2 (06:42→22:31)
[2021-05-12 09:00] VITALS: BP 124/67
[2021-05-12] MEDS: AMIODARONE HCL 200 MG TAB PO SCH ×2 (09:40→22:20)
[2021-05-12] MEDS: POTASSIUM CHL 20 Meq TABLET PO SCH (09:40)
[2021-05-12] MEDS: PANTOPRAZOLE 40 MG TAB PO SCH ×2 (09:40→22:20)
[2021-05-12] MEDS: LACTULOSE 20Gm/30ML SOLN PO SCH ×2 (09:40→22:20)
[2021-05-12 12:46] VITALS: BP 112/84
[2021-05-12 17:00] VITALS: BP 112/70
[2021-05-12] MEDS: ACETAMINOPHEN 325 MG TAB PO PRN (19:15)
[2021-05-12 20:00] VITALS: BP 95/45
[2021-05-12 22:00] VITALS: BP 95/45
[2021-05-12] MEDS: ATORVASTATIN 20 MG TAB PO SCH (22:20)
[2021-05-12] MEDS: MURO EACHEYE SCH (22:30)
[2021-05-13 05:00] VITALS: BP 138/77
[2021-05-13] MEDS: ACETAMINOPHEN 325 MG TAB PO PRN (05:06)
[2021-05-13] MEDS: ONDANSETRON ODT 4 MG TAB PO PRN (05:06)
[2021-05-13] MEDS: SUCRALFATE 1 GM/10 ML ORAL SUSP PO SCH ×3 (06:40→18:31)
[2021-05-13] MEDS ORDERED: HYDROcodone-ACET 7.5/325MG TAB PO ONE (07:00)
[2021-05-13 08:39] LABS: Albumin 1.9 g/dL (3.4-5.0); Calcium 7.3 mg/dL (8.5-10.1); Potassium 4.8 mmol/L (3.5-5.1)
[2021-05-13 08:42] LABS: BUN/Creatinine Ratio 27.8; Bilirubin, Total 0.4 mg/dL (0.2-1.0); Total Protein 4.8 g/dL (6.4-8.2)
[2021-05-13 08:55] VITALS: BP 114/58
[2021-05-13 10:49] LABS: Basophils # (auto) 0 10 ^3/uL (0-0.2); Basophils % (auto) 0.4 % (0.0-2.0); Eosinophils # (auto) 0.1 10 ^3/uL (0-0.8); Eosinophils % (auto) 1.7 % (0.0-7.0); Hemoglobin 7.9 g/dL (12.2-16.2); Lymphocytes # (auto) 0.7 10 ^3/uL (0.4-5.4); Lymphocytes % (auto) 11.8 % (10.0-50.0); Mean Corpuscular Hemoglobin 29.1 pg (28.0-32.0); Mean Corpuscular Hgb Conc. 32.8 g/dL (32.0-36.0); Mean Corpuscular Volume 88.7 fL (80.0-100.0); Monocytes # (auto) 0.5 10 ^3/uL (0-1.3); Monocytes % (auto) 8.8 % (0.0-12.0); Neutrophils # (auto) 4.3 10 ^3/uL (1.6-8.6); Neutrophils % (auto) 77.3 % (37.0-80.0); Red Blood Cells 2.71 10^6/uL (4.0-5.20); Red Cell Distribution Width 15.4 % (11.8-14.3); White Blood Cell 5.6 10^3/uL (4.4-10.8)
[2021-05-13] MEDS: LACTULOSE 20Gm/30ML SOLN PO SCH ×2 (11:32→23:21)
[2021-05-13] MEDS: AMIODARONE HCL 200 MG TAB PO SCH ×2 (11:32→23:20)
[2021-05-13] MEDS: POTASSIUM CHL 20 Meq TABLET PO SCH (11:33)
[2021-05-13] MEDS: PANTOPRAZOLE 40 MG TAB PO SCH ×2 (11:33→23:21)
[2021-05-13 12:30] VITALS: BP 110/75
[2021-05-13] MEDS: [UNRECOGNIZED DRUG - OTHER] EACHEYE PRN (16:05)
[2021-05-13] MEDS: HYDROcodone-ACET 5/325MG TAB PO PRN (16:05)
[2021-05-13 16:55] VITALS: BP 115/65
[2021-05-13 22:00] VITALS: BP 109/51
[2021-05-13] MEDS: ATORVASTATIN 20 MG TAB PO SCH (23:20)
[2021-05-13] MEDS: MURO EACHEYE SCH (23:21)
[2021-05-14] VITALS (11 sets, daily range): BP systolic 108–133; BP diastolic 55–82
[2021-05-14] MEDS: SUCRALFATE 1 GM/10 ML ORAL SUSP PO SCH ×3 (06:32→17:54)
[2021-05-14] MEDS: HYDROcodone-ACET 5/325MG TAB PO PRN ×2 (06:44)
[2021-05-14 07:06] LABS: Basophils # (auto) 0 10 ^3/uL (0-0.2); Basophils % (auto) 0.3 % (0.0-2.0); Eosinophils # (auto) 0.1 10 ^3/uL (0-0.8); Eosinophils % (auto) 1.4 % (0.0-7.0); Hemoglobin 7.5 g/dL (12.2-16.2); Lymphocytes # (auto) 0.6 10 ^3/uL (0.4-5.4); Lymphocytes % (auto) 7.1 % (10.0-50.0); Mean Corpuscular Hgb Conc. 32.6 g/dL (32.0-36.0); Mean Corpuscular Volume 88.9 fL (80.0-100.0); Monocytes # (auto) 0.7 10 ^3/uL (0-1.3); Neutrophils # (auto) 6.7 10 ^3/uL (1.6-8.6); Neutrophils % (auto) 82.2 % (37.0-80.0); Red Blood Cells 2.59 10^6/uL (4.0-5.20); Red Cell Distribution Width 15.1 % (11.8-14.3); White Blood Cell 8.2 10^3/uL (4.4-10.8)
[2021-05-14] MEDS: AMIODARONE HCL 200 MG TAB PO SCH ×2 (10:05→22:56)
[2021-05-14] MEDS: LACTULOSE 20Gm/30ML SOLN PO SCH (10:05)
[2021-05-14] MEDS: POTASSIUM CHL 20 Meq TABLET PO SCH (10:05)
[2021-05-14] MEDS: PANTOPRAZOLE 40 MG TAB PO SCH (10:05)
[2021-05-14] MEDS: MURO EACHEYE SCH (10:30)
[2021-05-14] MEDS ORDERED: PANTOPRAZOLE 40 MG/10 ML VIAL INJ IV ONE (11:30)
[2021-05-14] MEDS: MORPHINE SULFATE INJECTION 2 MG/ML SYRG IV PRN ×2 (13:07→18:51)
[2021-05-14] MEDS: SODIUM CHLORIDE 0.9% 1,000 ML IV SCH (14:00)
[2021-05-14] MEDS: [UNRECOGNIZED DRUG - OTHER] EACHEYE PRN (18:50)
[2021-05-14] MEDS: PANTOPRAZOLE 40 MG/10 ML VIAL INJ IV SCH (22:55)
[2021-05-14] MEDS: ATORVASTATIN 20 MG TAB PO SCH (22:56)
[2021-05-15] MEDS: SODIUM CHLORIDE 0.9% 1,000 ML IV SCH ×2 (00:50→14:10)
[2021-05-15 05:00] VITALS: BP 117/72
[2021-05-15] MEDS: SUCRALFATE 1 GM/10 ML ORAL SUSP PO SCH ×3 (07:00→18:57)
[2021-05-15 07:47] LABS: Calcium 7.4 mg/dL (8.5-10.1); Potassium 4.4 mmol/L (3.5-5.1)
[2021-05-15 07:48] LABS: Basophils # (auto) 0 10 ^3/uL (0-0.2); Eosinophils # (auto) 0.1 10 ^3/uL (0-0.8); Hemoglobin 8.4 g/dL (12.2-16.2); Lymphocytes # (auto) 0.6 10 ^3/uL (0.4-5.4); Monocytes # (auto) 0.7 10 ^3/uL (0-1.3); Red Blood Cells 2.99 10^6/uL (4.0-5.20)
[2021-05-15 07:50] LABS: Basophils % (auto) 0.4 % (0.0-2.0); Eosinophils % (auto) 1.5 % (0.0-7.0); Hematocrit 26.3 % (36.0-46.0); Lymphocytes % (auto) 7.6 % (10.0-50.0); Mean Corpuscular Hemoglobin 28.2 pg (28.0-32.0); Mean Corpuscular Hgb Conc. 32.1 g/dL (32.0-36.0); Mean Corpuscular Volume 87.9 fL (80.0-100.0); Monocytes % (auto) 9.3 % (0.0-12.0); Neutrophils # (auto) 6.3 10 ^3/uL (1.6-8.6); Neutrophils % (auto) 81.2 % (37.0-80.0); Nucleated Red Blood Cells % 0.2 %; Red Cell Distribution Width 15.1 % (11.8-14.3); White Blood Cell 7.8 10^3/uL (4.4-10.8)
[2021-05-15 08:00] VITALS: BP 113/74
[2021-05-15 09:13] LABS: INR 1.04 (0.9-1.15); Partial Thromboplastin Time 30.7 sec (23.6-33.0)
[2021-05-15] MEDS: PANTOPRAZOLE 40 MG/10 ML VIAL INJ IV SCH ×2 (09:59→21:34)
[2021-05-15] MEDS: AMIODARONE HCL 200 MG TAB PO SCH ×2 (10:00→21:35)
[2021-05-15 12:00] VITALS: BP 104/72
[2021-05-15] MEDS: MURO EACHEYE SCH (21:34)
[2021-05-15] MEDS: ATORVASTATIN 20 MG TAB PO SCH (21:35)
[2021-05-15 22:00] VITALS: BP 123/62
[2021-05-16] MEDS: SODIUM CHLORIDE 0.9% 1,000 ML IV SCH ×2 (03:30→17:54)
[2021-05-16 04:59] VITALS: BP 117/83
[2021-05-16] MEDS: SUCRALFATE 1 GM/10 ML ORAL SUSP PO SCH ×3 (07:00→17:55)
[2021-05-16 07:34] LABS: Basophils # (auto) 0 10 ^3/uL (0-0.2); Basophils % (auto) 0.2 % (0.0-2.0); Eosinophils # (auto) 0.1 10 ^3/uL (0-0.8); Eosinophils % (auto) 2.2 % (0.0-7.0); Hematocrit 27.3 % (36.0-46.0); Hemoglobin 8.8 g/dL (12.2-16.2); Lymphocytes # (auto) 0.5 10 ^3/uL (0.4-5.4); Lymphocytes % (auto) 8.3 % (10.0-50.0); Mean Corpuscular Hemoglobin 28.5 pg (28.0-32.0); Mean Corpuscular Hgb Conc. 32.3 g/dL (32.0-36.0); Mean Corpuscular Volume 88.4 fL (80.0-100.0); Monocytes # (auto) 0.5 10 ^3/uL (0-1.3); Monocytes % (auto) 7.4 % (0.0-12.0); Neutrophils # (auto) 5.4 10 ^3/uL (1.6-8.6); Neutrophils % (auto) 81.9 % (37.0-80.0); Nucleated Red Blood Cells % 0.1 %; Red Blood Cells 3.09 10^6/uL (4.0-5.20); Red Cell Distribution Width 15.7 % (11.8-14.3); White Blood Cell 6.5 10^3/uL (4.4-10.8)
[2021-05-16 07:56] LABS: Potassium 4.7 mmol/L (3.5-5.1)
[2021-05-16 08:07] LABS: Cholesterol 75 mg/dL (< 200); HDL Cholesterol 41 mg/dL (40-59); LDL Cholesterol 30 mg/dL (< 100); Triglycerides 54 mg/dL (< 150)
[2021-05-16 08:12] LABS: Albumin 1.8 g/dL (3.4-5.0); BUN/Creatinine Ratio 26.1; Bilirubin, Total 0.8 mg/dL (0.2-1.0); Calcium 7.5 mg/dL (8.5-10.1); Total Protein 4.8 g/dL (6.4-8.2)
[2021-05-16 09:00] VITALS: BP 129/58
[2021-05-16] MEDS: AMIODARONE HCL 200 MG TAB PO SCH ×2 (09:31→21:43)
[2021-05-16] MEDS: PANTOPRAZOLE 40 MG/10 ML VIAL INJ IV SCH ×2 (09:31→21:42)
[2021-05-16] MEDS ORDERED: HYDROCORTISONE ACET 25 MG RECTAL SUPP PR ONE (11:30)
[2021-05-16 13:00] VITALS: BP 106/55
[2021-05-16] MEDS ORDERED: LIDOCAINE VISCOUS 2% 15ML UD ONE (15:45)
[2021-05-16] MEDS ORDERED: fentaNYL CITRATE 100 MCG/2 ML VL ONE (16:45)
[2021-05-16] MEDS ORDERED: LIDOCAINE 2% (LOCAL ANESTH.) PF 5ml SDV ONE (16:47)
[2021-05-16 18:00] VITALS: BP 123/80
[2021-05-16] MEDS: ATORVASTATIN 20 MG TAB PO SCH (21:42)
[2021-05-16 22:00] VITALS: BP 128/63
[2021-05-16] MEDS: MURO EACHEYE SCH (22:00)
[2021-05-16] MEDS: HYDROCORTISONE ACET 25 MG RECTAL SUPP PR SCH (22:00)
[2021-05-17 05:00] VITALS: BP 113/63
[2021-05-17] MEDS: MORPHINE SULFATE INJECTION 2 MG/ML SYRG IV PRN (05:07)
[2021-05-17 05:31] LABS: Basophils # (auto) 0 10 ^3/uL (0-0.2); Basophils % (auto) 0.2 % (0.0-2.0); Eosinophils # (auto) 0.1 10 ^3/uL (0-0.8); Eosinophils % (auto) 1.4 % (0.0-7.0); Hematocrit 26.6 % (36.0-46.0); Hemoglobin 8.5 g/dL (12.2-16.2); Lymphocytes # (auto) 0.4 10 ^3/uL (0.4-5.4); Lymphocytes % (auto) 5.8 % (10.0-50.0); Mean Corpuscular Hemoglobin 28.2 pg (28.0-32.0); Mean Corpuscular Hgb Conc. 32.1 g/dL (32.0-36.0); Mean Corpuscular Volume 87.9 fL (80.0-100.0); Monocytes # (auto) 0.7 10 ^3/uL (0-1.3); Monocytes % (auto) 10.1 % (0.0-12.0); Neutrophils # (auto) 5.9 10 ^3/uL (1.6-8.6); Neutrophils % (auto) 82.5 % (37.0-80.0); Red Blood Cells 3.03 10^6/uL (4.0-5.20); Red Cell Distribution Width 15.7 % (11.8-14.3); White Blood Cell 7.2 10^3/uL (4.4-10.8)
[2021-05-17] MEDS: SODIUM CHLORIDE 0.9% 1,000 ML IV SCH (06:10)
[2021-05-17] MEDS: SUCRALFATE 1 GM/10 ML ORAL SUSP PO SCH ×3 (06:38→17:37)
[2021-05-17 08:39] VITALS: BP 123/63
[2021-05-17] MEDS: AMIODARONE HCL 200 MG TAB PO SCH ×2 (10:24→21:29)
[2021-05-17] MEDS: PANTOPRAZOLE 40 MG TAB PO SCH ×2 (10:24→21:28)
[2021-05-17] MEDS: HYDROCORTISONE ACET 25 MG RECTAL SUPP PR SCH ×2 (10:24→21:28)
[2021-05-17] MEDS: HYDROcodone-ACET 5/325MG TAB PO PRN ×2 (11:44→21:31)
[2021-05-17 13:00] VITALS: BP 114/49
[2021-05-17 16:48] VITALS: BP 118/60
[2021-05-17 20:00] VITALS: BP 115/57
[2021-05-17] MEDS: ATORVASTATIN 20 MG TAB PO SCH (21:29)
[2021-05-17] MEDS: MURO EACHEYE SCH (21:32)
[2021-05-17 22:24] VITALS: BP 115/57
[2021-05-18 05:00] VITALS: BP 123/63
[2021-05-18 06:26] LABS: Basophils # (auto) 0 10 ^3/uL (0-0.2); Eosinophils # (auto) 0.2 10 ^3/uL (0-0.8); Lymphocytes # (auto) 0.5 10 ^3/uL (0.4-5.4); Mean Corpuscular Volume 87.2 fL (80.0-100.0); Monocytes # (auto) 0.7 10 ^3/uL (0-1.3); Nucleated Red Blood Cells % 0.1 %; White Blood Cell 5.7 10^3/uL (4.4-10.8)
[2021-05-18 06:29] LABS: Basophils % (auto) 0.3 % (0.0-2.0); Eosinophils % (auto) 3.5 % (0.0-7.0); Lymphocytes % (auto) 8.8 % (10.0-50.0); Mean Corpuscular Hemoglobin 27.9 pg (28.0-32.0); Monocytes % (auto) 12.9 % (0.0-12.0); Neutrophils # (auto) 4.3 10 ^3/uL (1.6-8.6); Neutrophils % (auto) 74.5 % (37.0-80.0); Red Blood Cells 2.87 10^6/uL (4.0-5.20); Red Cell Distribution Width 15.5 % (11.8-14.3)
[2021-05-18] MEDS: SUCRALFATE 1 GM/10 ML ORAL SUSP PO SCH ×3 (06:37→17:53)
[2021-05-18 09:00] VITALS: BP 126/89
[2021-05-18] MEDS: AMIODARONE HCL 200 MG TAB PO SCH ×2 (09:46→21:49)
[2021-05-18] MEDS: PANTOPRAZOLE 40 MG TAB PO SCH ×2 (09:47→21:49)
[2021-05-18] MEDS: HYDROCORTISONE ACET 25 MG RECTAL SUPP PR SCH ×2 (09:47→21:49)
[2021-05-18 13:00] VITALS: BP 108/55
[2021-05-18 17:00] VITALS: BP 108/89
[2021-05-18 20:00] VITALS: BP 118/62
[2021-05-18] MEDS: HYDROcodone-ACET 5/325MG TAB PO PRN (21:48)
[2021-05-18] MEDS: ATORVASTATIN 20 MG TAB PO SCH (21:49)
[2021-05-18 22:00] VITALS: BP 118/62
[2021-05-19 05:00] VITALS: BP 110/61
[2021-05-19 05:26] LABS: Basophils # (auto) 0 10 ^3/uL (0-0.2); Basophils % (auto) 0.3 % (0.0-2.0); Eosinophils # (auto) 0.3 10 ^3/uL (0-0.8); Lymphocytes # (auto) 0.7 10 ^3/uL (0.4-5.4); Mean Corpuscular Hgb Conc. 31.5 g/dL (32.0-36.0); Monocytes # (auto) 0.7 10 ^3/uL (0-1.3); Neutrophils # (auto) 4.1 10 ^3/uL (1.6-8.6)
[2021-05-19 05:28] LABS: Eosinophils % (auto) 5.7 % (0.0-7.0); Hematocrit 25.6 % (36.0-46.0); Hemoglobin 8.1 g/dL (12.2-16.2); Lymphocytes % (auto) 11.8 % (10.0-50.0); Mean Corpuscular Hemoglobin 27.4 pg (28.0-32.0); Neutrophils % (auto) 70.2 % (37.0-80.0); Nucleated Red Blood Cells % 0.3 %; Red Blood Cells 2.94 10^6/uL (4.0-5.20); Red Cell Distribution Width 16.3 % (11.8-14.3); White Blood Cell 5.8 10^3/uL (4.4-10.8)
[2021-05-19 05:40] LABS: INR 1.05 (0.9-1.15)
[2021-05-19 05:55] LABS: BUN/Creatinine Ratio 26.3; Calcium 7.8 mg/dL (8.5-10.1); Potassium 3.8 mmol/L (3.5-5.1)
[2021-05-19] MEDS: SUCRALFATE 1 GM/10 ML ORAL SUSP PO SCH ×3 (06:20→17:32)
[2021-05-19] MEDS: MURO EACHEYE SCH ×2 (06:20→21:36)
[2021-05-19 09:00] VITALS: BP 125/61
[2021-05-19] MEDS: AMIODARONE HCL 200 MG TAB PO SCH ×2 (10:28→21:37)
[2021-05-19] MEDS: PANTOPRAZOLE 40 MG TAB PO SCH ×2 (10:28→21:36)
[2021-05-19] MEDS: HYDROCORTISONE ACET 25 MG RECTAL SUPP PR SCH ×2 (10:29→21:36)
[2021-05-19 13:00] VITALS: BP 115/48
[2021-05-19] MEDS ORDERED: GOLYTELY 4L KIT PO ONE (14:30)
[2021-05-19 16:55] VITALS: BP 127/65
[2021-05-19 20:00] VITALS: BP 108/57
[2021-05-19] MEDS: ATORVASTATIN 20 MG TAB PO SCH (21:37)
[2021-05-19 22:00] VITALS: BP 108/57
[2021-05-20] MEDS: HYDROcodone-ACET 5/325MG TAB PO PRN (01:39)
[2021-05-20 05:00] VITALS: BP 104/56
[2021-05-20] MEDS: SUCRALFATE 1 GM/10 ML ORAL SUSP PO SCH ×3 (05:49→17:01)
[2021-05-20] MEDS ORDERED: MAGNESIUM CITRATE SOLUTION 300 ML BTL PO ONE (06:00)
[2021-05-20] MEDS ORDERED: GOLYTELY 4L KIT PO ONE (06:00)
[2021-05-20 09:00] VITALS: BP 113/57
[2021-05-20] MEDS: HYDROCORTISONE ACET 25 MG RECTAL SUPP PR SCH ×2 (10:10→21:30)
[2021-05-20] MEDS: PANTOPRAZOLE 40 MG TAB PO SCH ×2 (10:10→21:30)
[2021-05-20] MEDS: AMIODARONE HCL 200 MG TAB PO SCH ×2 (10:10→21:31)
[2021-05-20 13:00] VITALS: BP 107/67
[2021-05-20] MEDS ORDERED: MIDAZOLAM HCL 2MG/2ML 2ml VIAL (1mg/ml) ONE (13:37)
[2021-05-20] MEDS ORDERED: fentaNYL CITRATE 100 MCG/2 ML VL ONE (13:37)
[2021-05-20] MEDS ORDERED: LACTULOSE 20Gm/30ML SOLN PO PRN (14:15)
[2021-05-20 17:00] VITALS: BP 112/77
[2021-05-20] MEDS: MURO EACHEYE SCH (21:30)
[2021-05-20] MEDS: ATORVASTATIN 20 MG TAB PO SCH (21:30)
[2021-05-20 22:00] VITALS: BP 107/49
[2021-05-21 05:00] VITALS: BP 94/50
[2021-05-21 06:15] LABS: Basophils # (auto) 0 10 ^3/uL (0-0.2); Basophils % (auto) 0.3 % (0.0-2.0); Eosinophils # (auto) 0.2 10 ^3/uL (0-0.8); Eosinophils % (auto) 3.7 % (0.0-7.0); Hematocrit 23.8 % (36.0-46.0); Hemoglobin 7.7 g/dL (12.2-16.2); Lymphocytes # (auto) 0.6 10 ^3/uL (0.4-5.4); Lymphocytes % (auto) 10.3 % (10.0-50.0); Mean Corpuscular Hemoglobin 27.5 pg (28.0-32.0); Mean Corpuscular Hgb Conc. 32.2 g/dL (32.0-36.0); Mean Corpuscular Volume 85.4 fL (80.0-100.0); Monocytes # (auto) 0.8 10 ^3/uL (0-1.3); Monocytes % (auto) 12.9 % (0.0-12.0); Neutrophils # (auto) 4.3 10 ^3/uL (1.6-8.6); Neutrophils % (auto) 72.8 % (37.0-80.0); Nucleated Red Blood Cells % 0.2 %; Red Blood Cells 2.79 10^6/uL (4.0-5.20); Red Cell Distribution Width 15.4 % (11.8-14.3); White Blood Cell 5.9 10^3/uL (4.4-10.8)
[2021-05-21] MEDS: SUCRALFATE 1 GM/10 ML ORAL SUSP PO SCH ×3 (07:10→18:32)
[2021-05-21 09:00] VITALS: BP 131/56
[2021-05-21] MEDS: AMIODARONE HCL 200 MG TAB PO SCH ×2 (10:18→21:49)
[2021-05-21] MEDS: PANTOPRAZOLE 40 MG TAB PO SCH ×2 (10:18→21:49)
[2021-05-21] MEDS: HYDROCORTISONE ACET 25 MG RECTAL SUPP PR SCH ×2 (10:19→21:49)
[2021-05-21] MEDS: SODIUM FERR GLUC 62.5MG/5ML 125 MG in SODIUM CHL 0.9% 100 ML IV SCH (12:44)
[2021-05-21 13:00] VITALS: BP 106/73
[2021-05-21 16:15] VITALS: BP 104/51
[2021-05-21 21:37] VITALS: BP 129/74
[2021-05-21] MEDS: MURO EACHEYE SCH (21:47)
[2021-05-21] MEDS: ATORVASTATIN 20 MG TAB PO SCH (21:48)
[2021-05-22 05:00] VITALS: BP 102/45
[2021-05-22] MEDS: SUCRALFATE 1 GM/10 ML ORAL SUSP PO SCH ×2 (06:11→13:05)
[2021-05-22 09:00] VITALS: BP 107/65
[2021-05-22] MEDS: PANTOPRAZOLE 40 MG TAB PO SCH (10:14)
[2021-05-22] MEDS: HYDROCORTISONE ACET 25 MG RECTAL SUPP PR SCH (10:14)
[2021-05-22] MEDS: AMIODARONE HCL 200 MG TAB PO SCH (10:14)
[2021-05-22 13:00] VITALS: BP 101/50
[2021-05-22] MEDS: SODIUM FERR GLUC 62.5MG/5ML 125 MG in SODIUM CHL 0.9% 100 ML IV SCH (13:05)
[2021-05-22 17:00] VITALS: BP 108/47
[2021-05-22 22:00] VITALS: BP 108/52
== END 2021-05-22 22:53 | DRG 871 ==
LOC: ER 10:20 → EDBD 10:20 → TELE 17:23 → TELE-EAST 23:20 → TELE-CENTR 05-16 14:00
PROVIDERS: ADMIT Hospitalist; ATTEND Internal Medicine
PROC: XW033E5 Introduction of Remdesivir Anti-infective into Peripheral Vein, Percutaneous Approach, New Technology Group 5 (ICD-10-PCS; 2021-04-23)
PROC: 05HC33Z Insertion of Infusion Device into Left Basilic Vein, Percutaneous Approach (ICD-10-PCS; 2021-05-02)
PROC: B54NZZA Ultrasonography of Left Upper Extremity Veins, Guidance (ICD-10-PCS; 2021-05-02)
PROC: 30233N1 Transfusion of Nonautologous Red Blood Cells into Peripheral Vein, Percutaneous Approach (ICD-10-PCS; 2021-05-02)
PROC: 0DJ08ZZ Inspection of Upper Intestinal Tract, Via Natural or Artificial Opening Endoscopic (ICD-10-PCS; principal; 2021-05-16 16:42)
PROC: 0DJD8ZZ Inspection of Lower Intestinal Tract, Via Natural or Artificial Opening Endoscopic (ICD-10-PCS; 2021-05-20)
DX: A41.89 Other specified sepsis (principal); U07.1 COVID-19; J12.82 Pneumonia due to coronavirus disease 2019; I50.43 Acute on chronic combined systolic (congestive) and diastolic (congestive) heart failure; G92.8 Other toxic encephalopathy; R57.1 Hypovolemic shock; J96.01 Acute respiratory failure with hypoxia; K57.31 Diverticulosis of large intestine without perforation or abscess with bleeding; D68.69 Other thrombophilia; I42.9 Cardiomyopathy, unspecified; D62 Acute posthemorrhagic anemia; K62.6 Ulcer of anus and rectum; I48.20 Chronic atrial fibrillation, unspecified; Z66 Do not resuscitate; D89.839 Cytokine release syndrome, grade unspecified; E55.9 Vitamin D deficiency, unspecified; I11.0 Hypertensive heart disease with heart failure; F41.9 Anxiety disorder, unspecified; H91.90 Unspecified hearing loss, unspecified ear; I48.0 Paroxysmal atrial fibrillation; E88.09 Other disorders of plasma-protein metabolism, not elsewhere classified; K59.00 Constipation, unspecified; E78.5 Hyperlipidemia, unspecified; M19.90 Unspecified osteoarthritis, unspecified site; M54.50 Low back pain, unspecified; G89.29 Other chronic pain; R53.81 Other malaise; Z53.20 Procedure and treatment not carried out because of patient's decision for unspecified reasons; Z79.01 Long term (current) use of anticoagulants; Z79.899 Other long term (current) drug therapy; Z85.42 Personal history of malignant neoplasm of other parts of uterus; Z90.49 Acquired absence of other specified parts of digestive tract; Z90.710 Acquired absence of both cervix and uterus
CPT/HCPCS: 36415; 70450; 71045; 72100; 74176; 80048; 80053; 80061; 80162; 80307; 81001; 82270; 82306; 82962; 83036; 83605; 83735; 83880; 84100; 84443; 84484; 84550; 85007; 85025; 85027; 85379; 85610; 85730; 86850; 86900; 86901; 86920; 87040; 87086; 87426; 93005; 93306; 93886; 96365; 96366; 96368; 96375; 97110; 97116; 97162; 97530; 99291; C9113; G0378; J0696; J1100; J2001; J2250; J2405; J3490; J7060; Q0162